=== PATIENT | female | born 1960 | race African-American/Black ===

== ENCOUNTER 2018-12-25 16:40 | Emergency (ER) | payer BC, SELFPAY ==
[2018-12-25 17:10] VITALS: BP 152/83; PULSE 110; RESP 19; TEMP 36.8; O2SAT 100; BMI 31.1
[2018-12-25 18:02] VITALS: BP 147/80; PULSE 105; RESP 19; O2SAT 98
--- NOTE | 2018-12-25 19:15 | ED_ITS ---
HPI - Headache General Chief Complaint: Headache Stated Complaint: STATES NEED EMERGENCY SPINAL TAP Time Seen by Provider: 12/25/18 16:54 Source: patient Mode of arrival: ambulatory History of Present Illness HPI Narrative: the patient is a 58-year-old female presenting with headaches drainage from her ear and nose bleeds. She has a known history of intracranial hypertension. She says for a long time and has been under control she lost weight and that seemed to control it for about the last 10 years. However the last 6 months she started having worsening headaches. She was hospitalized in [facility] and evaluated by neurologist. She was found to have complicated migraines and thought that intracranial hypertension was returning. She was told that she may need high volume spinal taps which have not yet been d one. Today she feels like her headache was a little worse and she had some drainage from her ears and had 2 nosebleeds today. She says all these signs are signs of her hypertension coming back. she does have some peripheral vision loss. Her blood pressure is slightly elevated with a systolic in the 150s now. She has no focal deficits. she has tried to schedule an outpatient high-volume spinal tap is at [facility] but difficulty getting his the order processed. She actually would prefer an outpatient high-volume spinal tap as opposed to one in the emergenency department. MD Complaint: headache Review of Systems Review of Systems ROS Unobtainable: All systems reviewed & are unremarkable except as noted in HPI and below Constitutional Denies chills, Denies fever(s), Reports headache(s), Denies lethargy and Denies weakness Eyes Reports change in vision (Bilateral peripheral vision decreasing) ENT Ears, Nose, Mouth, and Throat: Denies change in voice, Reports headache(s), Reports epistaxis (X2 today), Denies neck pain and Denies sore throat Cardiovascular Denies chest pain, Denies irregular heart rhythm, Denies lightheadedness, Denies palpitations and Denies orthopnea Gastrointestinal Gastrointestinal: Denies abdominal pain, Denies change in bowel habits, Denies diarrhea, Denies nausea and Denies vomiting Musculoskeletal Denies neck pain Integumentary/Breasts Denies pruritus, Denies erythema, Denies rash and Denies wounds Neurologic Reports headache(s) and Denies weakness Endocrine Denies palpitations PFSH Medical History Bilateral occipital neuralgia (Chronic) Cervicogenic headache (Chronic) Chronic neck pain (Chronic) Intracranial hypertension (Chronic) Intractable migraine with aura without status migrainosus (Chronic) Social History Smoking Status: Never smoker Social History Smoking Status: Never smoker Exam Initial Vital Signs Initial Vital Signs: Vital Signs Temperature 98.3 F 12/25/18 17:10 Pulse Rate 110 H 12/25/18 17:10 Respiratory Rate 19 12/25/18 17:10 Blood Pressure 152/83 H 12/25/18 17:10 Pulse Oximetry 100 12/25/18 17:10 GENERAL: Well-appearing, well-nourished and in no acute distress. HEENT: Head atraumatic,EOMI, pupils reactive, slight decrease in peripheral vision bilaterally. face symmetric, moist mucous membranes EARS: Tympanic membranes visualized, no erythema or bulging, no hemotympanum no drainage from ears bilaterally CARDIOVASCULAR: Regular rate and rhythm without murmurs, rubs or gallops. RESPIRATORY: Breath sounds equal bilaterally, no wheezes rales or rhonchi. ABDOMEN: Soft, nontender. Normoactive bowel sounds all 4 quadrants. No guarding or rebound.s EXTREMITIES: Normal range of motion, no clubbing or edema. Neurovascularly intact NEUROLOGICAL: Alert and oriented x4.Normal gait and speech. Cranial nerves II through XII grossly intact. Tacker Elastic Band strength equal bilaterally moving all extremi ties steady gait SKIN: Warm, dry, no laceration, no petechiae, no rashes or lesions. Course Vital Signs - 8 hr 12/25/18 17:10 12/25/18 18:02 12/25/18 19:46 Temperature 98.3 F Pulse Rate 110 H 105 H 124 H Respiratory Rate 19 19 18 Blood Pressure 152/83 H Blood Pressure [Left Arm] 147/80 H 160/105 H Pulse Oximetry 100 98 100 MDM - Headache MDM Narrative Medical decision making narrative: Discuss with patient blood work IV pain control all while I get in contact with Neurology. She said that she has a very hard stick she does not really want blood work. Additionally called Neurology Office in [place] at [place] [phone], implied they are part of the [facility] system. I called [facility] to try and get in touch with physician is or neurologist. I did speak with Dr. martha thornton, unfortunately they are unable to see the patient is records. Recommended that if patient was having significant vision loss or papilledema to do high-volume spinal tap, otherwise it was the appropriate for outpatient. Patient wanted to try and contact her neurologist and schedule this as an outpatient. She no longer lives in [place]. She was frustrated and wanted to go home. After patient left I did actually talk to her own neurologist Dr.Baburaj Best, out of [facility] in [place]. He said that he did not tell patient to come to emergently to the department for immediate high-volume spinal tap. I explained [place] it [place] for her to get into him. He states that he she has multiple headaches in intracranial problems. He recommended a headache specialist into high volume spinal tap at [facility]. He agrees that he will call and contact patient to help schedule and arrange treatment as needed. Discharge Plan Departure Patient Disposition: Home Clinical Impression: Benign intracranial hypertension Headache Qualifiers: Headache type: unspecified Headache chronicity pattern: unspecified pattern Intractability: not intractable Qualified Code(s): R51 - Headache Discharge Date/Time: 12/25/18 20:03 Interventions: ED Discharge Assessment Last Done: 12/25/18 20:00 Instructions: DI for Headache Activity Restrictions/Additional Instructions: * Intracranial hypertension * I have called the [facility] I am still waiting for a phone call back to help schedule you and outpatient high-volume spinal tap, per your neurologist request. * follow-up with neurology with your primary care doctor in 3-5 days * return to the ER if you should have any weakness persistent vomiting is vision change worsening headache or any new or worsening symptoms Referrals: gerber Best [Other]
[2018-12-25 19:46] VITALS: BP 160/105; PULSE 124; RESP 18; O2SAT 100
== END 2018-12-25 20:03 | disposition home or self-care (01) ==
PROVIDERS: Emergency Provider Emergency Medicine
DX: G93.2 Benign intracranial hypertension (principal)
CPT/HCPCS: 99282

== ENCOUNTER 2018-12-30 08:36 | Day surgery (SDC) | payer BC, SELFPAY ==
[2018-12-30] VITALS (9 sets, daily range): BP systolic 134–147; BP diastolic 60–94; PULSE 110–120; RESP 15–20; TEMP 36.2–36.8; O2SAT 98–100; BMI 30.4
[2018-12-30 09:33] LABS: Platelet Count 319 X10^3/uL (150-400)
[2018-12-30 10:06] LABS: INR 0.9 (0.9-1.3); Prothrombin Time 10.3 SECONDS (10.1-12.7)
[2018-12-30 10:09] LABS: PTT Partial Thromboplastin Tim 33 SECONDS (26.4-36.2)
[2018-12-30 11:51] LABS: Glucose CSF 104 mg/dL (40-70); Total Protein CSF 93 mg/dL (12-60)
[2018-12-30 12:15] LABS: Appearance CSF CLEAR (Clear); CSF Tube Number 3; CSF Tube Volume 1.0 mL; Color CSF COLORLESS (Colorless); White Blood Cell CSF 1 MONO/uL (0-5)
[2018-12-30 12:16] LABS: Mononuclear WBC CSF 100 %; Polynuclear WBC CSF 0 %; Red Blood Cell CSF 14 RBC /uL
--- NOTE | 2018-12-30 14:33 | SUR.PHASEII ---
1250 pt expressed desire to d/c. Bandaid CDI. VS stable. Pt denied headache, nausea or vomiting. Responding appropriately to commands and questions. IV d/c'd. D/C instructions reviewed.
== END 2018-12-30 13:06 | disposition home or self-care (01) ==
PROVIDERS: Radiology Diagnostic Radiology; Visit Provider Psychiatry & Neurology Neurology
PROC: 009U3ZZ Drainage of Spinal Canal, Percutaneous Approach (ICD-10-PCS; principal; 2018-12-30 10:00)
DX: G93.2 Benign intracranial hypertension (principal); G43.119 Migraine with aura, intractable, without status migrainosus
CPT/HCPCS: 62270; 76000; 82945; 84157; 85049; 85610; 85730; 87070; 87205; 89051

== ENCOUNTER → 2018-12-30 08:42 | Outpatient (CLI) | payer BC, SELFPAY ==
--- NOTE | 2018-12-30 | DI.RAD.S_ITS ---
PROCEDURE: FL GUIDED LUMBAR PUNCTURE LP INDICATIONS: Benign intracranial hypertension TECHNIQUE: The indications, alternatives, benefits, risks, and complications were explained to the patient. Written informed consent was obtained and placed in the chart. The patient was placed in a prone position on the fluoroscopy table, and a level was chosen for percutaneous access under fluoroscopic guidance. The site was prepped and draped in a sterile fashion. After local anaesthetic, a spinal needle was then used to enter the intrathecal space, with return of cerebrospinal fluid. After obtaining sufficient fluid, the needle was then withdrawn, and a bandage applied to the puncture site. FINDINGS: Puncture level: L3 right paramedian interlaminar logic, dorsal approach. Needle: Spinal needle. Opening pressure: 14 cm water from the tip of needle to the meniscus, opening pressure. At termination of procedure the meniscus had reduced to 9 cm water heights from the needle tip, in prone positioning.. CSF volume and description: 4 small aliquots were obtained, crystal clear, for analysis at the direction of the aortic valve care provider. Medications: 1% lidocaine for anaesthesia. Complications: None. Laboratories: As ordered by referring clinician. IMPRESSION: Successful fluoroscopically guided lumbar puncture 14 cm opening pressure, 9 cm closing pressure, normal-appearing CSF observed, small aliquots were provided in 4 separate containers for laboratory analysis. Dictated by: Amilcar Gibson M.D. on 12/30/2018 at 13:09 Approved by: Amilcar Gibson M.D. on 12/30/2018 at 13:11
== END ==
PROVIDERS: Visit Provider Psychiatry & Neurology Neurology
DX: G93.2 Benign intracranial hypertension (principal)
CPT/HCPCS: 62270; 76000

== ENCOUNTER 2019-01-28 07:29 | Outpatient (RCR) | payer BC, SELFPAY ==
--- NOTE | 2019-01-28 11:15 | PT.OPPOC ---
Current Diagnoses Cervicalgia (01/28/19) Occipital neuralgia (01/28/19) Headache (01/28/19) Provider Visit Care Team Role Provider Type Angella Marie Primary Care Provider Non-Staff Specialty: Medical Address: [address] [place] [address], [address], [address] Fax: Email: Vandana Best MD Attending Provider Non-Staff Specialty: Psychiatry Address: [address] [place] [address], [address], [place], [address] Email: Plan Of Care PT-OP-T Assessment and Plan Start: 01/28/19 10:15 Freq: Status: Active Protocol: Document 01/28/19 11:00 EA (Rec: 02/03/19 08:54 EA [id number]) Physical Therapy Assessment Rehab Potential Rehabilitation Potential Fair Evaluation Complexity Number of Personal Factors/Comorbidities 3 or More Number of Body Systems Impaired 3 Clinical Presentation at Evaluation Unstable Impairments Impairments Activity Tolerance Pain Posture ROM Soft Tissue Mobility Strength Other Concerns Barriers to Rehabilitation Chronicity of the condition, tolerance to manual and exercises tolerance Goals Three Impairment Impaired sleep Shear Operator Helper Goal (LTG) Patient will sleep > 6 hrs without disturbance from neck pain. LTG Duration 4 wks Two Impairment Neck disability index score of 36/50 Alf Goal (LTG) Patient will have score of <30 LTG Duration 4 wks One Impairment No HEP in place Shear Operator Helper Goal (LTG) Patient will exhibit safe indepedent home exercise program LTG Duration 4 wks Assessment Summary Assessment Pleasant 58 y/o F patient with referring diagnosis of Chronic neck pain, Cervicogenic pain, and bilateral occipital Neuralgia. Today patient presented of with limited neck mobility due to increasing pain. Assessment is limited only to shoulder and arms due to increasing pain and hypersensitivity to manual touch from head to base of the cervical region. Posture reveals forward head with rounded shoulders with slight elevation of right shoulder in posterior view. Special tests was not possible at this time due to inability to tolerate position and manual contact. Functional Appley's reveals both able to reached up and back to C7 and down and back to L2. Due to increasing pain and decreased tolerance to special tests, patient agreeable to undergo pain management prior to starting skilled PT in which appears she is scheduled for this week to pain management assessment . In my professional opinion, patient would benefit only to skilled PT once she is able to manage manual contact and increased tolerance to neck mobility with goals of increasing neck mobility and improving posture. Physical Therapy Plan Frequency and Duration Frequency of Treatment 2x/Week Duration of Treatment 8 Plan of Care Start Date 01/28/19 Plan of Care End Date 03/25/19 Therapeutic Interventions Therapeutic Interventions Home Exercise Program Joint Mobilizations Manual Therapy Patient/Caregiver Education Self-Care/Home Management Soft Tissue Mobilization Taping Therapeutic Exercises Modalities Cold Pack/Ice Massage Electric Stimulation Hot Packs Traction- Mechanical Hold Physical Therapy Reason For Hold To initiate pain management treatment due to decreased tolerance to manual touch and mobility. Next Visit Focus/Plan Next Note Type Treatment Note Next Visit Plan re-assess pain and complete strength and special tests. Plan of Care Dates Plan of Care Start Date 01/28/19 Plan of Care End Date 03/25/19 Please Sign and Return: I have reviewed this Plan of Care and certify that the skilled therapy services above are required to meet the patient?s needs. Physician Signature Date Printed Name and Credentials Clinical Instructor Signature Printed Name and Credentials
--- NOTE | 2019-01-28 11:15 | PT.OIE ---
Current Diagnoses Cervicalgia (01/28/19) Occipital neuralgia (01/28/19) Headache (01/28/19) Past Medical History (Last Updated 12/25/18 @ 22:19 by Sunita Oropeza DO) Bilateral occipital neuralgia (Chronic) Cervicogenic headache (Chronic) Chronic neck pain (Chronic) Intracranial hypertension (Chronic) Intractable migraine with aura without status migrainosus (Chronic) Provider Visit Care Team Role Provider Type Angellamilagros Marie Primary Care Provider Non-Staff Specialty: Medical Address: [address] [place] [address], [facility] [address], [address] Fax: Email: Vandana Best MD Attending Provider Non-Staff Specialty: Psychiatry Address: [address] [place] [address], [facility] [address], [place], [address] Email: Physical Therapy Initial Evaluation PT-OP-A Visit Information Start: 01/28/19 10:15 Freq: Status: Active Protocol: Document 01/28/19 11:08 EA (Rec: 01/28/19 11:15 EA [id number]) Out-Patient Physical Therapy Visit Information Visit Information Visit Type Initial Evaluation Visit Start Time 07:35 Visit Stop Time 08:00 Total Visit Minutes 40 Visit Number 1 Number of BARREL POLISHER Visits 0 Evaluation Information Evaluation Date 01/28/19 Precautions Precautions Seizures PT-OP-B Current Condition Start: 01/28/19 10:15 Freq: Status: Active Protocol: Document 01/28/19 11:08 EA (Rec: 01/28/19 11:15 EA [id number]) Current Condition History of Current Condition Onset Date 2007 Current Complaints Post neck, scalp, and shoulder pain History of Current Condition Patient narrated: Three diagnosis of current scalp, cervical and shoulder pain. 1. Hemiplegic migraine: Pt report had multiple hospitalization recently, states symptoms of left side face dropping with pain. She prefers not to be treated with PT as she believes it won't help by physical therapy for this condition. 2. Occipital neuralgia: Pt reports had formal PT in 2007, and 2010 which was not completely resolved. She mentioned that hemiplegic pain most of the time aggravates the occipital neuralgia. 3. Intracranial HTN: She reports pending surgery for an increasing spinal fluid pressure. Prior Treatments and Tests 2007 and 2010 Formal PT for occipital neuralgia Lumbar Tap 12/2018 Multiple recent hospitalization Future Testing and Treatments Planned Pending cranial surgery per patient Scheduled for pain management 02/13/19 Treatment Goals Patient/Caregiver Goals Patient would like to improve neck mobility and decrease pain. Prior Functional Status Baseline Function- ADL's Independent Baseline Function- Mobility Independent Baseline Function- Gait Independent with no AD Baseline Function- Work/School Used to work under [employer] service per patient. Current Functional Impairments (Reported) Functional Limitations- ADL's Independent but unable to perform ADL's during the flareups. Functional Limitations- Mobility/Gait Independent but unable to mobilize or perform functional tasks when neck pain and headache aggravated Functional Limitations- Work/School Unable to work at this time Functional Limitations- Recreation/ Unable/ extreme difficulty Hobbies Personal Factors Other Personal Factors That May Effect Chronicity of the condition, Therapy/Recovery fibromyalgia PT-OP-C Subjective Start: 01/28/19 10:15 Freq: Status: Active Protocol: Document 01/28/19 11:00 EA (Rec: 02/03/19 08:54 EA [id number]) OP-PT Subjective Patient Comments Patient Comments Patient reports light touch application to the side, posterior neck region, occiput , temporal region excacerbates current pain and head ache symptoms. Patient Reported Progress Worse Patient Questionnaires Neck Disability Index NDI Score 36 Neck Disability Index Impairment 60 to 79% Impaired (Score 30- 39) OP-PT Pain Assessment Pain Assessment Grid Paper Pain Assessment Grid Completed Yes Location Left Posterior Lateral Neck Pain Location Details Poterior and lateral neck, occiput region Intensity 7 Description Aching Radiating Sharp Shooting Tender Tightness Frequency Frequent Pain Aggravating Factors Activity Home Pain Medication Use Pain Medications Used Yes Pain Behaviors Pain Behaviors Guarding Wincing PT-OP-E Functional Tests Start: 01/28/19 10:15 Freq: Status: Active Protocol: Document 01/28/19 11:00 EA (Rec: 02/03/19 08:54 EA [id number]) Functional Tests Sanjanaey's Scratch Test Action 1: The subject is instructed to touch the opposite shoulder with his/her hand. This motion checks Glenohumeral adduction, internal rotation , horizontal adduction and scapular protraction Action 2: The subject is instructed to place his/her arm overhead and reach behind the neck to touch his/her upper back. This motion checks Glenohumeral abduction, external rotation and scapular upward rotation and elevation. Action 3: The subject puts his/her hand on the lower back and reaches upward as far as possible. This motion checks glenohumeral adduction, internal rotation and scapular retraction with downward rotation Action 1- Left post opp shoulder Action 1- Right post opp shoulder Action 2- Left C7 Action 2- Right C7 Action 3- Left L2 Action 3- Right L2 PT-OP-H Neuro Start: 01/28/19 10:15 Freq: Status: Active Protocol: Document 01/28/19 11:00 EA (Rec: 02/03/19 08:57 EA [id number]) Sensation Evaluation Gross Sensation Gross Sensation WNL PT-OP-J Posture/Palpation/Skin Start: 01/28/19 10:15 Freq: Status: Active Protocol: Document 01/28/19 11:00 EA (Rec: 02/03/19 08:54 EA [id number]) Posture Evaluation Position Sitting Evaluation View post/lat Head/C-Spine Posture Forward Head T-Spine Posture Increased Kyphosis Scapula Posture (L) Protracted (R) Protracted Arm Posture (L) Internally Rotated (R) Internally Rotated Palpation Assessment Location One Palpation Details N/A applicable due to hypersensitivity to touch PT-OP-K Range of Motion Start: 01/28/19 10:15 Freq: Status: Active Protocol: Document 01/28/19 11:00 EA (Rec: 02/03/19 08:55 EA [id number]) Cervical Spine Range of Motion Cervical Spine Active Percentage Testing Position Sitting Flexion 30 Extension 15 Rotation Left 30 Rotation Right 30 Lateral Flexion Left 50 Lateral Flexion Right 50 ROM Limitations Soft Tissue Tightness Pain Shoulder Goniometric Range of Motion Shoulder ROM Limitations Shoulder ROM Limitations Pain Comments Patient Appley's: Overhead both C7 and behind the back were both L2 Elbow/Forearm Range of Motion Elbow/Forearm ROM Limitations Comments WFL PT-OP-L Special Tests Start: 01/28/19 10:15 Freq: Status: Active Protocol: Document 01/28/19 11:00 EA (Rec: 02/03/19 08:54 EA [id number]) Special Tests Other Special Tests Special Tests Cervical special tests is N/A at this time due to inability tolerate certain positions and manual contact. PT-OP-M Strength Start: 01/28/19 10:15 Freq: Status: Active Protocol: Document 01/28/19 11:00 EA (Rec: 02/03/19 08:54 EA [id number]) Cervical Spine Strength Cervical Spine Manual Muscle Testing Testing Position Sitting Reason Not Measured Pain Shoulder Strength Shoulder Manual Muscle Testing Right Reason Not Measured Pain Comments Unable to perform MMT due to hypersensitivity, however spontaneous movement noted to at least 3/5 on both UE's. Left Reason Not Measured Pain Comments Unable to perform MMT due to hypersensitivity, however spontaneous movement noted to at least 3/5 on both UE's. Elbow/Forearm Strength Elbow and Forearm Manual Muscle Testing Right Reason Not Measured Pain Comments Unable to perform MMT due to hypersensitivity, however spontaneous movement noted to at least 3/5 on both UE's. Left Reason Not Measured Pain Comments Unable to perform MMT due to hypersensitivity, however spontaneous movement noted to at least 3/5 on both UE's. PT-OP-T Assessment and Plan Start: 01/28/19 10:15 Freq: Status: Active Protocol: Document 01/28/19 11:00 EA (Rec: 02/03/19 08:54 EA [id number]) Physical Therapy Assessment Rehab Potential Rehabilitation Potential Fair Evaluation Complexity Number of Personal Factors/Comorbidities 3 or More Number of Body Systems Impaired 3 Clinical Presentation at Evaluation Unstable Impairments Impairments Activity Tolerance Pain Posture ROM Soft Tissue Mobility Strength Other Concerns Barriers to Rehabilitation Chronicity of the condition, tolerance to manual and exercises tolerance Goals Three Impairment Impaired sleep Fdc Goal (LTG) Patient will sleep > 6 hrs without disturbance from neck pain. LTG Duration 4 wks Two Impairment Neck disability index score of 36/50 Fdc Goal (LTG) Patient will have score of <30 LTG Duration 4 wks One Impairment No HEP in place Administrative Support Associate Goal (LTG) Patient will exhibit safe indepedent home exercise program LTG Duration 4 wks Assessment Summary Assessment Pleasant 58 y/o F patient with referring diagnosis of Chronic neck pain, Cervicogenic pain, and bilateral occipital Neuralgia. Today patient presented of with limited neck mobility due to increasing pain. Assessment is limited only to shoulder and arms due to increasing pain and hypersensitivity to manual touch from head to base of the cervical region. Posture reveals forward head with rounded shoulders with slight elevation of right shoulder in posterior view. Special tests was not possible at this time due to inability to tolerate position and manual contact. Functional Appley's reveals both able to reached up and back to C7 and down and back to L2. Due to increasing pain and decreased tolerance to special tests, patient agreeable to undergo pain management prior to starting skilled PT in which appears she is scheduled for this week to pain management assessment . In my professional opinion, patient would benefit only to skilled PT once she is able to manage manual contact and increased tolerance to neck mobility with goals of increasing neck mobility and improving posture. Physical Therapy Plan Frequency and Duration Frequency of Treatment 2x/Week Duration of Treatment 8 Plan of Care Start Date 01/28/19 Plan of Care End Date 03/25/19 Therapeutic Interventions Therapeutic Interventions Home Exercise Program Joint Mobilizations Manual Therapy Patient/Caregiver Education Self-Care/Home Management Soft Tissue Mobilization Taping Therapeutic Exercises Modalities Cold Pack/Ice Massage Electric Stimulation Hot Packs Traction- Mechanical Hold Physical Therapy Reason For Hold To initiate pain management treatment due to decreased tolerance to manual touch and mobility. Next Visit Focus/Plan Next Note Type Treatment Note Next Visit Plan re-assess pain and complete strength and special tests.
--- NOTE | 2019-05-20 16:59 | PT.OPDS ---
Current Diagnoses Cervicalgia (01/28/19) Occipital neuralgia (01/28/19) Headache (01/28/19) Provider Visit Care Team Role Provider Type Angella Marie Primary Care Provider Non-Staff Specialty: Medical Address: [address] [place] [address], [address], [address] Fax: Email: Vandana Best MD Attending Provider Non-Staff Specialty: Psychiatry Address: [address] [place] [address], [address], [place], [address] Email: Visit Number Visit Number 1 Discharge Summary PT-OP-B Current Condition Start: 01/28/19 10:15 Freq: Status: Active Protocol: Document 01/28/19 11:08 MANUELA (Rec: 01/28/19 11:15 EA [id number]) Current Condition History of Current Condition Onset Date 2007 Current Complaints Post neck, scalp, and shoulder pain History of Current Condition Patient narrated: Three diagnosis of current scalp, cervical and shoulder pain. 1. Hemiplegic migraine: Pt report had multiple hospitalization recently, states symptoms of left side face dropping with pain. She prefers not to be treated with PT as she believes it won't help by physical therapy for this condition. 2. Occipital neuralgia: Pt reports had formal PT in 2007, and 2010 which was not completely resolved. She mentioned that hemiplegic pain most of the time aggravates the occipital neuralgia. 3. Intracranial HTN: She reports pending surgery for an increasing spinal fluid pressure. Prior Treatments and Tests 2007 and 2010 Formal PT for occipital neuralgia Lumbar Tap 12/2018 Multiple recent hospitalization Future Testing and Treatments Planned Pending cranial surgery per patient Scheduled for pain management 02/13/19 Treatment Goals Patient/Caregiver Goals Patient would like to improve neck mobility and decrease pain. 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 Current Functional Impairments (Reported) Functional Limitations- ADL's Independent but unable to perform ADL's during the flareups. Functional Limitations- Mobility/Gait Independent but unable to mobilize or perform functional tasks when neck pain and headache aggravated Functional Limitations- Work/School Unable to work at this time Functional Limitations- Recreation/ Unable/ extreme difficulty Hobbies Personal Factors Other Personal Factors That May Effect Chronicity of the condition, Therapy/Recovery fibromyalgia PT-OP-C Subjective Start: 01/28/19 10:15 Freq: Status: Active Protocol: Document 05/20/19 16:57 EA (Rec: 05/20/19 16:58 EA [id number]) OP-PT Subjective Patient Comments Patient Comments Pt is discharge due to not attending PT. PT-OP-E Functional Tests Start: 01/28/19 10:15 Freq: Status: Active Protocol: Document 01/28/19 11:00 EA (Rec: 02/03/19 08:54 EA [id number]) Functional Tests Apley's Scratch Test Action 1- Left post opp shoulder Action 1- Right post opp shoulder Action 2- Left C7 Action 2- Right C7 Action 3- Left L2 Action 3- Right L2 PT-OP-H Neuro Start: 01/28/19 10:15 Freq: Status: Active Protocol: Document 01/28/19 11:00 EA (Rec: 02/03/19 08:57 EA [id number]) Sensation Evaluation Gross Sensation Gross Sensation WNL PT-OP-J Posture/Palpation/Skin Start: 01/28/19 10:15 Freq: Status: Active Protocol: Document 01/28/19 11:00 EA (Rec: 02/03/19 08:54 EA [id number]) Posture Evaluation Position Sitting Evaluation View post/lat Head/C-Spine Posture Forward Head T-Spine Posture Increased Kyphosis Scapula Posture (L) Protracted (R) Protracted Arm Posture (L) Internally Rotated (R) Internally Rotated Palpation Assessment Location One Palpation Details N/A applicable due to hypersensitivity to touch PT-OP-K Range of Motion Start: 01/28/19 10:15 Freq: Status: Active Protocol: Document 01/28/19 11:00 EA (Rec: 02/03/19 08:55 EA [id number]) Cervical Spine Range of Motion Cervical Spine Active Percentage Testing Position Sitting Flexion 30 Extension 15 Rotation Left 30 Rotation Right 30 Lateral Flexion Left 50 Lateral Flexion Right 50 ROM Limitations Soft Tissue Tightness Pain Shoulder Goniometric Range of Motion Shoulder ROM Limitations Shoulder ROM Limitations Pain Comments Patient Appley's: Overhead both C7 and behind the back were both L2 Elbow/Forearm Range of Motion Elbow/Forearm ROM Limitations Comments WFL PT-OP-L Special Tests Start: 01/28/19 10:15 Freq: Status: Active Protocol: Document 01/28/19 11:00 EA (Rec: 02/03/19 08:54 EA [id number]) Special Tests Other Special Tests Special Tests Cervical special tests is N/A at this time due to inability tolerate certain positions and manual contact. PT-OP-M Strength Start: 01/28/19 10:15 Freq: Status: Active Protocol: Document 01/28/19 11:00 EA (Rec: 02/03/19 08:54 EA [id number]) Cervical Spine Strength Cervical Spine Manual Muscle Testing Testing Position Sitting Reason Not Measured Pain Shoulder Strength Shoulder Manual Muscle Testing Right Reason Not Measured Pain Comments Unable to perform MMT due to hypersensitivity, however spontaneous movement noted to at least 3/5 on both UE's. Left Reason Not Measured Pain Comments Unable to perform MMT due to hypersensitivity, however spontaneous movement noted to at least 3/5 on both UE's. Elbow/Forearm Strength Elbow and Forearm Manual Muscle Testing Right Reason Not Measured Pain Comments Unable to perform MMT due to hypersensitivity, however spontaneous movement noted to at least 3/5 on both UE's. Left Reason Not Measured Pain Comments Unable to perform MMT due to hypersensitivity, however spontaneous movement noted to at least 3/5 on both UE's. PT-OP-T Assessment and Plan Start: 01/28/19 10:15 Freq: Status: Active Protocol: Document 05/20/19 16:57 EA (Rec: 05/20/19 16:58 EA [id number]) Physical Therapy Assessment Assessment Summary Assessment Pt is discharge due to not attending PT and did not schedule PT appointment after agreeing to call back once she is seen by the pain management. Physical Therapy Plan Discharge Physical Therapy Discharge Reasons No Longer Attending PT
== END 2019-01-28 13:59 | disposition home or self-care (01) ==
LOC: PHYS 07:29
PROVIDERS: PCP Family Medicine; Visit Provider Psychiatry & Neurology Neurology
DX: M54.2 Cervicalgia (principal); R51 Headache; M54.81 Occipital neuralgia
CPT/HCPCS: 97163

== ENCOUNTER → 2019-02-13 11:26 | Outpatient (CLI) | payer BC, SELFPAY ==
--- NOTE | 2019-02-13 11:29 | DI.RAD.S_ITS ---
PROCEDURE: XR CERVICAL SPINE 2V OR 3V INDICATIONS: NECK PAIN TECHNIQUE: 3 view(s) of the cervical spine were acquired. COMPARISON: None. FINDINGS: Bones: Straightening of cervical curvature. No fractures or dislocations to the C7 level. The lateral masses of C1 appear intact on the odontoid view. No suspicious bony lesions. There is mild degenerative disc disease at C5-C6 and C6-C7. Soft tissues: No prevertebral soft tissue swelling. IMPRESSION: Mild degenerative disc disease. Dictated by: Aaliyah Murrell M.D. on 02/13/2019 at 14:19 Approved by: Aaliyah Murrell M.D. on 02/13/2019 at 14:20
--- NOTE | 2019-02-13 11:29 | DI.RAD.S_ITS ---
PROCEDURE: XR THORACIC SPINE 2V INDICATIONS: neck pain TECHNIQUE: 3 views of the thoracic spine were acquired. COMPARISON: None. FINDINGS: Bones: No fractures or dislocations. No suspicious bony lesions. Mild degenerative disc disease is present in thoracic spine. There are multiple large right lateral osteophytes. 12 pairs of ribs are noted, and appear intact where visualized. Soft tissues: No paravertebral stripe thickening. IMPRESSION: Degenerative disc disease and degenerative spurring in thoracic spine. Dictated by: Aaliyah Murrell M.D. on 02/13/2019 at 17:22 Approved by: Aaliyah Murrell M.D. on 02/13/2019 at 17:31
== END ==
PROVIDERS: Visit Provider Family Medicine
DX: M50.322 Other cervical disc degeneration at C5-C6 level (principal); M51.34 Other intervertebral disc degeneration, thoracic region; M25.78 Osteophyte, vertebrae; M54.81 Occipital neuralgia; G50.0 Trigeminal neuralgia; G43.409 Hemiplegic migraine, not intractable, without status migrainosus; G93.2 Benign intracranial hypertension
CPT/HCPCS: 64405; 72040; 72070

== ENCOUNTER → 2019-04-17 07:30 | Outpatient (CLI) | payer BC, SELFPAY ==
--- NOTE | 2019-04-17 07:31 | DI.MRI.S_ITS ---
PROCEDURE: MR CERVICAL SPINE WO CON INDICATIONS: neck pain TECHNIQUE: Noncontrast sagittal T1 spin echo and T2 fast spin echo, sagittal STIR, foraminal oblique sagittal T2 fast spin echo, and axial gradient echo or T2 fast spin echo through the cervical spine. COMPARISON: [facility], CR, XR CERVICAL SPINE 2V OR 3V, 02/13/2019, 11:34. FINDINGS: Image quality: Excellent. Alignment and Curvature: There is normal bony alignment. Bone Marrow: Marrow demonstrates normal overall signal. Spinal Cord: Visualized spinal cord has normal size and signal. No cerebellar tonsillar herniation. Paraspinous Soft Tissues: No paravertebral masses. Prevertebral soft tissues are normal in thickness. C2-C3: Congenital canal stenosis. Moderate disc desiccation. Mild diffuse disc bulge. Small central annular tear. Mild facet hypertrophy bilaterally. Mild canal stenosis. Mild bilateral foraminal stenosis. C3-C4: Congenital canal stenosis. Moderate disc desiccation. Mild diffuse disc bulge. Mild facet and uncovertebral hypertrophy bilaterally. Moderate to severe canal stenosis. Minimal anterior cord flattening. Moderate right and mild left foraminal stenosis. C4-C5: Congenital canal stenosis. Moderate disc desiccation. Mild diffuse disc bulge. Mild facet and uncovertebral hypertrophy bilaterally. Moderate canal stenosis. Mild left and moderate right foraminal stenosis. C5-C6: Congenital canal stenosis. Moderate disc desiccation. Mild diffuse disc bulge. Mild facet and uncovertebral hypertrophy bilaterally. Moderate to severe canal stenosis. No left foraminal stenosis. Moderate right foraminal stenosis. C6-C7: Congenital canal stenosis. Mild disc height loss. Moderate disc desiccation. Mild diffuse disc bulge with superimposed right paracentral and posterolateral protrusion. Mild facet and uncovertebral hypertrophy bilaterally. Moderate to severe canal stenosis. Mild cord flattening. Mild foraminal stenosis bilaterally. C7-T1: Mild disc desiccation and diffuse disc bulge. Congenital canal stenosis. Mild bilateral facet hypertrophy. Mild canal stenosis. Mild foraminal stenosis bilaterally. IMPRESSION: 1. Diffuse congenital canal stenosis, with superimposed disc and facet disease, as well as uncovertebral hypertrophy. 2. Multilevel canal stenoses, worst at C3-C4 and C6-C7, where there is cord flattening present. 3. Multilevel foraminal stenoses, worst at C3-C4 on the right, at C4-C5 on the right, and at C5-C6 on the right, where there are moderate foraminal stenoses. Dictated by: Junior Claire M.D. on 04/17/2019 at 11:04 Approved by: Junior Claire M.D. on 04/17/2019 at 11:09
== END ==
PROVIDERS: PCP Family Medicine; Visit Provider Physical Medicine & Rehabilitation
DX: M48.02 Spinal stenosis, cervical region (principal); M50.21 Other cervical disc displacement, high cervical region
CPT/HCPCS: 72141

== ENCOUNTER 2019-05-09 04:27 | Emergency (ER) | payer BC, SELFPAY ==
[2019-05-09 04:35] VITALS: BMI 29.0
--- NOTE | 2019-05-09 04:41 | ED_ITS ---
HPI - Allergic Reaction General Chief complaint: Allergic Reaction Stated complaint: Itchy, Burning Rash, Headache, Swelling Time Seen by Provider: 05/09/19 04:38 Source: patient Mode of arrival: ambulatory Limitations: no limitations History of Present Illness HPI narrative: The patient has a non itchy rash this been going on for about 1 week. She has no history of asthma or allergies. She has no obvious exposure. Her other prominent symptom is a sore throat. She has no difficulty swallowing. She denies fever or chills. She is diabetic, her diabetes is well controlled. Her glucose is running 100-120. There is no associated rhinorrhea, no cough. She has no GI or symptoms. She complains of itchiness in her upper extremities or lower extremities. She complains of edema, edema is coming going previously. She has been compliant with medications. She has been using Benadryl for the itching with little result. Related Data Home Medications Medication Instructions Recorded Confirmed glimepiride 2 mg PO BID 12/30/18 04/18/19 metformin 1,000 mg PO QPM 12/30/18 04/18/19 metformin 500 mg PO QAM 12/30/18 04/18/19 nifedipine 60 mg PO DAILY 12/30/18 04/18/19 topiramate 50 mg PO BID 12/30/18 04/18/19 Previous Rx's Medication Instructions Recorded carbamazepine ER 100 mg 100 mg PO DAILY #60 tab 02/13/19 tablet,extended release,12 hr baclofen 10 mg tablet 5 mg PO BID #30 tab 02/17/19 baclofen 10 mg tablet 10 mg PO TID #90 tab 03/03/19 carbamazepine ER 100 mg 100 mg PO BID #120 tab 03/03/19 tablet,extended release,12 hr celecoxib 200 mg capsule 200 mg PO DAILY #30 cap 04/09/19 oxycodone 5 mg capsule 5 mg PO Q6H PRN #20 cap 04/18/19 Allergies Allergy/AdvReac Type Severity Reaction Status Date / Time NEEL Inhibitors Allergy Severe swelling Verified 04/18/19 08:14 and sob Review of Systems Review of Systems ROS Unobtainable: All systems reviewed & are unremarkable except as noted in HPI and below Constitutional Denies chills, Denies fever(s), Denies lethargy and Denies weakness Eyes Denies eye discharge and Denies itchy eyes ENT Ears, Nose, Mouth, and Throat: Denies change in voice, Denies neck pain and Reports sore throat Cardiovascular Denies chest pain, Denies lightheadedness, Denies palpitations, Denies dyspnea and Denies orthopnea Respiratory Denies cough, Denies dyspnea and Denies wheezing Gastrointestinal Gastrointestinal: Denies abdominal pain, Denies diarrhea, Denies nausea and Denies vomiting Genitourinary Denies hematuria, Denies flank pain and Denies urinary urgency Musculoskeletal Denies back pain and Denies neck pain Integumentary/Breasts Reports as per HPI, Reports pruritus and Denies rash Neurologic Denies weakness Psychiatric Denies anxiety and Denies suicidal ideation Endocrine Denies palpitations Allergic/Immunologic Denies itchy eyes and Denies wheezing [facility] Medical History (Updated 05/09/19 @ 05:30 by Chencho Montoya MD) Diabetes (Acute) Bilateral occipital neuralgia (Chronic) Cervicogenic headache (Chronic) Chronic neck pain (Chronic) Intracranial hypertension (Chronic) Intractable migraine with aura without status migrainosus (Chronic) Social History household members: spouse Smoking Status: Never smoker Social History household members: spouse Smoking Status: Never smoker Exam Const General: cooperative and well developed Nutritional Appearance: well nourished Orientation: alert, awake, oriented x3 and not confused [facility] Head: normocephalic and atraumatic Nose: external nose normal and No nasal discharge Face and sinus: sinuses nontender and face symmetric Mouth: moist mucous membranes Teeth and gingiva: dentition normal Throat: tonsils normal, uvula midline and posterior oropharynx abnormal (Slight erythema. No exudate.) Eyes General: appearance normal, both eyes and all related structures Eyelids: eyelids normal Conjunctivae: conjunctivae normal Sclera: sclerae normal Pupils: PERRL EOM: EOM intact bilaterally Neck Neck: No lymphadenopathy and No tender Resp Effort & Inspection: normal respiratory effort, able to speak in complete sentences, no respiratory distress and no use of accessory muscles Auscultation: clear to auscultation bilaterally, no rales, no rhonchi and no wheezes Cardio Rate: regular rate Rhythm: regular rhythm Heart Sounds: no click, no gallops, no murmurs and no rubs Pulses: normal peripheral pulses GI Inspection: non-distended Palpation: soft, no hepatosplenomegaly, No guarding and No tender Auscultation: normal bowel sounds Back/Spine/Pelvis Back: No CVA tenderness Skin Other: Papillary rash with erythema, sporadically present on both wrists, hands, upper back, and lower extremities. No pustules. Itchy. Neuro General: alert, oriented x3, gait normal and no focal motor deficits Speech: speech normal Course Course Narrative: Patient is content with understand she has a virus. She is a daughter at her house, she wanted to rule out measles. She was reasonably sure that there was no evidence of measles, from our own Internet research. She declined further evaluation. She has a scheduled follow-up with her own doctor in the next few days. Discharge Plan Departure Patient Disposition: Home Clinical Impression: Viral illness Discharge Date/Time: 05/09/19 05:33 Instructions: DI for Viral Syndrome Activity Restrictions/Additional Instructions: Benadryl every 4-6 hours as needed for itching. Shower requently. I would suggest applying moisturizers to help soothe the skin and try to prevent scratching. Return to the ER if you develop persistent fevers. Follow up with your doctor as scheduled. Prescriptions: No Action baclofen 10 mg tablet 5 mg PO BID Qty: 30 RF: 1 metformin 500 mg tablet 500 mg PO QAM RF: 0 glimepiride 2 mg tablet 2 mg PO BID RF: 0 nifedipine 60 mg tablet extended release 24hr 60 mg PO DAILY RF: 0 metformin 1,000 mg tablet 1,000 mg PO QPM RF: 0 topiramate 50 mg tablet 50 mg PO BID RF: 0 celecoxib [Celebrex] 200 mg capsule 200 mg PO DAILY Qty: 30 RF: 2 carbamazepine [Tegretol XR] 100 mg tablet extended release 12 hr 100 mg PO DAILY Qty: 60 RF: 3 baclofen 10 mg tablet 10 mg PO TID Qty: 90 RF: 2 carbamazepine [Tegretol XR] 100 mg tablet extended release 12 hr 100 mg PO BID Qty: 120 RF: 2 oxycodone 5 mg capsule 5 mg PO Q6H PRN (Reason: pain) Qty: 20 RF: 0 Referrals: Angella Marie [Primary Care Provider] -
[2019-05-09 05:30] VITALS: BP 140/90; PULSE 98; RESP 18; O2SAT 98
== END 2019-05-09 05:33 | disposition home or self-care (01) ==
PROVIDERS: Emergency Provider Emergency Medicine; PCP Family Medicine
DX: B34.9 Viral infection, unspecified (principal)
CPT/HCPCS: 99282

== ENCOUNTER → 2019-05-19 11:41 | Outpatient (CLI) | payer BC, SELFPAY ==
[2019-05-19 12:40] LABS: Hemoglobin A1C% w Est Avg Glu 8.4 % (4.0-6.0)
[2019-05-19 14:35] LABS: Microalbumin Urine Random 6.5 mg/dL (0-1.6)
[2019-05-19 14:46] LABS: Microalbumi Creatinin Ratio Ur 18.7 ug/mg CR (<30)
[2019-05-19 16:09] LABS: Hep C Virus Ab w/Reflex Quant NEGATIVE s/c (NEGATIVE)
== END ==
PROVIDERS: PCP Family Medicine; Visit Provider Family Medicine
DX: E11.65 Type 2 diabetes mellitus with hyperglycemia (principal); Z11.59 Encounter for screening for other viral diseases
CPT/HCPCS: 36415; 82043; 82570; 83036; 86803

== ENCOUNTER 2019-05-23 07:30 | Outpatient (RCR) | payer BC, SELFPAY ==
--- NOTE | 2019-05-21 17:22 | PT.OIE ---
Current Diagnoses Spondylosis without myelopathy or radiculopathy, cervical region (05/21/19) Past Medical History (Last Updated 05/09/19 @ 05:30 by Chencho Montoya MD) Diabetes (Acute) Bilateral occipital neuralgia (Chronic) Cervicogenic headache (Chronic) Chronic neck pain (Chronic) Intracranial hypertension (Chronic) Intractable migraine with aura without status migrainosus (Chronic) Provider Visit Care Team Role Provider Type Angella Marie Primary Care Provider Non-Staff Specialty: Medical Address: [address] [place] [address], [address] [place] [address], [phone] Fax: Email: Chencho Smith DO Attending Provider Physician Specialty: Physiatry Pain Management Address: [address] [place] [address], [id number] Email: Physical Therapy Initial Evaluation PT-OP-A Visit Information Start: 05/21/19 09:46 Freq: Status: Active Protocol: Document 05/21/19 09:55 EA (Rec: 05/21/19 10:33 EA [id number]) Out-Patient Physical Therapy Visit Information Visit Information Visit Type Initial Evaluation Visit Start Time 07:30 Visit Stop Time 08:15 Total Visit Minutes 40 Visit Number 1 Evaluation Information Evaluation Date 05/21/19 Precautions Precautions Hypersensitive to touch PT-OP-B Current Condition Start: 05/21/19 09:46 Freq: Status: Active Protocol: Document 05/21/19 09:55 EA (Rec: 05/21/19 10:33 EA [id number]) Current Condition History of Current Condition Onset Date 15 years ago Current Complaints occipital and left lateral neck and shoulder pain. History of Current Condition Patient reports that she was not able to scheduled PT since last PT evaluation due to pain treament that she had at pain clinic; she reports that MRI recently reveals that she has a lot of neck osteoarthritis. Aside from having arthritis to cervical region, she believes pain last night is maybe due to occipital trigeminal neuralgia . She reports medication helps and hot compress helps a bit. Prior Treatments and Tests Multiple cervical and head diagnostic imaging and pain injection treament in the past 15 years. Physical therapy and myotherapy multiple times in the past. Recent MRI shows: Multilevel cervical foraminal stenosis, diffuse canal stenosis with cord flattening. Future Testing and Treatments Planned None identified. Treatment Goals Patient/Caregiver Goals Patient is unsure if PT will help but is willing try. Patient would like to know exercises that would help improve her posture. 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 Functional Limitations- Mobility/Gait Limited to indoor amb when symptoms is present, otherwise tolerable certain outdoor distance walk. 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 Functional Limitations- Recreation/ None identified Hobbies Personal Factors Other Personal Factors That May Effect Fibromyalgia, chronicity of Therapy/Recovery the condition. Previous PT, and other medical treament with limited results. PT-OP-C Subjective Start: 05/21/19 09:46 Freq: Status: Active Protocol: Document 05/21/19 09:55 EA (Rec: 05/21/19 10:33 EA [id number]) OP-PT Subjective Patient Comments Patient Comments I dont know about occipital neuralgia' and I dont know how are you gonna help me. Patient states I am will to try PT to improve her posture and mobility. Patient Reported Progress Same Patient Questionnaires Neck Disability Index NDI Score 40 Neck Disability Index Impairment 80 to 99% Impaired (Score 40- 49) Quick Dash- Upper Extremity Quick Dash UE Score 66 Quick Dash UE Impairment 60 to 79% Impaired (Score 60- 79) PT-OP-E Functional Tests Start: 05/21/19 09:46 Freq: Status: Active Protocol: Document 05/21/19 09:55 EA (Rec: 05/21/19 10:33 EA [id number]) Functional Tests Apley's Scratch Test Action 1- Left post shoulder Action 1- Right post shoulder Action 2- Left T1 Action 2- Right T1 Action 3- Left T12 Action 3- Right T12 PT-OP-F Manual Assessment Start: 05/21/19 09:46 Freq: Status: Active Protocol: Document 05/21/19 09:55 EA (Rec: 05/21/19 10:33 EA [id number]) Manual Assessments Soft Tissue Assessment Soft Tissue Mobility Assessment Tight anterior shoulders and chest area. PT-OP-H Neuro Start: 05/21/19 09:46 Freq: Status: Active Protocol: Document 05/21/19 09:55 EA (Rec: 05/21/19 10:33 EA [id number]) Deep Tendon Reflex & Clonus Assessment Deep Tendon Reflex Right Bicep Deep Tendon Reflex 2+ Normal Left Bicep Deep Tendon Reflex 2+ Normal Vital Signs Comments Vital Signs Comments WNL PT-OP-J Posture/Palpation/Skin Start: 05/21/19 09:46 Freq: Status: Active Protocol: Document 05/21/19 09:55 EA (Rec: 05/21/19 10:33 EA [id number]) Posture Evaluation Comments Posture Comments Patient exhibited with moderate forward head with rounded shoulders. Palpation Assessment Location One Palpation Location Boht traps, Paracervicals, Scalene, LS Palpation Findings Soft Tissue Tightness Tenderness Trigger Point PT-OP-K Range of Motion Start: 05/21/19 09:46 Freq: Status: Active Protocol: Document 05/21/19 09:55 EA (Rec: 05/21/19 10:33 EA [id number]) Cervical Spine Range of Motion Cervical Spine Active Percentage Testing Position Sitting Flexion 80 Extension 65 Rotation Left 70 Rotation Right 70 Lateral Flexion Left 65 Lateral Flexion Right 65 ROM Limitations Soft Tissue Tightness Pain Shoulder Goniometric Range of Motion Shoulder Left Active Shoulder ROM WFL Yes Right Active Shoulder ROM WFL Yes PT-OP-M Strength Start: 05/21/19 09:46 Freq: Status: Active Protocol: Document 05/21/19 09:55 EA (Rec: 05/21/19 10:33 EA [id number]) Cervical Spine Strength Cervical Spine Manual Muscle Testing Reason Not Measured Pain Comments Patient MMT tested with no resistance in sitting, supine and SL: patient able to hold head against gravity. Shoulder Strength Shoulder Manual Muscle Testing Right Reason Not Measured Pain Comments Unable to perform MMT due to hypersensitivity, however spontaneous movement noted to at least 3/5 on both UE's. Left Reason Not Measured Pain Comments Unable to perform MMT due to hypersensitivity, however spontaneous movement noted to at least 3/5 on both UE's. Elbow/Forearm Strength Elbow and Forearm Manual Muscle Testing Right Reason Not Measured Pain Comments Unable to perform MMT due to hypersensitivity, however spontaneous movement noted to at least 3/5 on both UE's. Left Reason Not Measured Pain Comments Unable to perform MMT due to hypersensitivity, however spontaneous movement noted to at least 3/5 on both UE's. PT-OP-Q Treatments Start: 05/21/19 09:46 Freq: Status: Active Protocol: Document 05/21/19 09:55 EA (Rec: 05/21/19 10:33 EA [id number]) Self-Care/Home Management Treatment Education Patient Education Home Exercise Program Joint Protection Pain Management Posture PT-OP-T Assessment and Plan Start: 05/21/19 09:46 Freq: Status: Active Protocol: Document 05/21/19 09:55 EA (Rec: 05/21/19 10:33 EA [id number]) Physical Therapy Assessment Rehab Potential Rehabilitation Potential Fair Evaluation Complexity Number of Personal Factors/Comorbidities 1-2 Number of Body Systems Impaired 3 Clinical Presentation at Evaluation Unstable Impairments Impairments Activity Tolerance Functional Activities Functional Mobility Pain Posture ROM Soft Tissue Mobility Goals Four Impairment Impaired posture Prison Goal (LTG) Patient will exhibit normal posture to prevent cervical muscular imbalances and enhace patient's function. LTG Duration 4 wks Three Impairment Impaired sleep Prison Goal (LTG) Patient will sleep > 6 hrs without disturbance from neck pain. LTG Duration 4 wks Two Impairment Neck disability index score of 40/50 Meat Counter Clerk Goal (LTG) Patient will have score of <30 to enhance functional ADL's LTG Duration 4 wks One Impairment No HEP in place Meat Counter Clerk Goal (LTG) Patient will exhibit safe indepedent home exercise program LTG Duration 4 wks Assessment Summary Assessment Pleasant 58 y/o F patient with referring diagnosis of cervical spondylosis without radiculopathy. Today patient exhibits no acute distress and able to carry conversation with spontaneous head and arm movement without discomfort or guarding. Pt reports she took pain medication prior to todays session. Assessment reveals fair head to shoulder posture with tightness to both shoulder protractors. AROM reveals tightness limited cervical extension > SF> rotation>flexion. Proper MMT was not able to perform due to pain with pressure, however patient was able to perform cervical F/E/Rot/SF against gravity. Palpation reveals grade 2 tenderness over to both traps, scalene, lev scap. Patient is impaired to perform ADL's when pain severity is high and deficits limits patient functional ability with pain is lower. Patient would benefit with skilled PT addressing shoulder and neck dysfunction mentioned above. Physical Therapy Plan Frequency and Duration Frequency of Treatment 2x/Week Duration of Treatment 8 wks Plan of Care Start Date 05/21/19 Plan of Care End Date 07/16/19 Therapeutic Interventions Therapeutic Interventions Home Exercise Program Manual Therapy Patient/Caregiver Education Self-Care/Home Management Soft Tissue Mobilization Taping Therapeutic Exercises Modalities Cold Pack/Ice Massage Hot Packs Traction- Mechanical Ultrasound Next Visit Focus/Plan Next Note Type Treatment Note Next Visit Plan Provide HEP with images, Gentle neck ROm, gentle STM , Trial static vervical traction , modalities for pain
--- NOTE | 2019-05-21 17:22 | PT.OPPOC ---
Current Diagnoses Spondylosis without myelopathy or radiculopathy, cervical region (05/21/19) Provider Visit Care Team Role Provider Type Angella Marie Primary Care Provider Non-Staff Specialty: Medical Address: [address] [place] [address], [address], [place], [address] Fax: Email: Chencho Smith DO Attending Provider Physician Specialty: Physiatry Pain Management Address: [address] [place] [address], [id number] Email: Plan Of Care PT-OP-T Assessment and Plan Start: 05/21/19 09:46 Freq: Status: Active Protocol: Document 05/21/19 09:55 EA (Rec: 05/21/19 10:33 EA [id number]) Physical Therapy Assessment Rehab Potential Rehabilitation Potential Fair Evaluation Complexity Number of Personal Factors/Comorbidities 1-2 Number of Body Systems Impaired 3 Clinical Presentation at Evaluation Unstable Impairments Impairments Activity Tolerance Functional Activities Functional Mobility Pain Posture ROM Soft Tissue Mobility Goals Four Impairment Impaired posture Fpc Goal (LTG) Patient will exhibit normal posture to prevent cervical muscular imbalances and enhace patient's function. LTG Duration 4 wks Three Impairment Impaired sleep Sandwich Wrapper Goal (LTG) Patient will sleep > 6 hrs without disturbance from neck pain. LTG Duration 4 wks Two Impairment Neck disability index score of 40/50 Fpc Goal (LTG) Patient will have score of <30 to enhance functional ADL's LTG Duration 4 wks One Impairment No HEP in place Fpc Goal (LTG) Patient will exhibit safe indepedent home exercise program LTG Duration 4 wks Assessment Summary Assessment Pleasant 58 y/o F patient with referring diagnosis of cervical spondylosis without radiculopathy. Today patient exhibits no acute distress and able to carry conversation with spontaneous head and arm movement without discomfort or guarding. Pt reports she took pain medication prior to todays session. Assessment reveals fair head to shoulder posture with tightness to both shoulder protractors. AROM reveals tightness limited cervical extension > SF> rotation>flexion. Proper MMT was not able to perform due to pain with pressure, however patient was able to perform cervical F/E/Rot/SF against gravity. Palpation reveals grade 2 tenderness over to both traps, scalene, lev scap. Patient is impaired to perform ADL's when pain severity is high and deficits limits patient functional ability with pain is lower. Patient would benefit with skilled PT addressing shoulder and neck dysfunction mentioned above. Physical Therapy Plan Frequency and Duration Frequency of Treatment 2x/Week Duration of Treatment 8 wks Plan of Care Start Date 05/21/19 Plan of Care End Date 07/16/19 Therapeutic Interventions Therapeutic Interventions Home Exercise Program Manual Therapy Patient/Caregiver Education Self-Care/Home Management Soft Tissue Mobilization Taping Therapeutic Exercises Modalities Cold Pack/Ice Massage Hot Packs Traction- Mechanical Ultrasound Next Visit Focus/Plan Next Note Type Treatment Note Next Visit Plan Provide HEP with images, Gentle neck ROm, gentle STM , Trial static cervical traction , modalities for pain Plan of Care Dates Plan of Care Start Date 05/21/19 Plan of Care End Date 07/16/19 Please Sign and Return: I have reviewed this Plan of Care and certify that the skilled therapy services above are required to meet the patient?s needs. Physician Signature Date Printed Name and Credentials Clinical Instructor Signature Printed Name and Credentials
--- NOTE | 2019-05-23 09:13 | PT.OTN ---
Current Diagnoses Spondylosis without myelopathy or radiculopathy, cervical region (05/23/19) Physical Therapy Treatment Note PT-OP-A Visit Information Start: 05/21/19 09:46 Freq: Status: Active Protocol: Document 05/23/19 09:01 SA (Rec: 05/23/19 09:13 SA [id number]) Out-Patient Physical Therapy Visit Information Visit Information Visit Type Treatment Note Visit Start Time 07:30 Visit Stop Time 08:15 Total Visit Minutes 45 Visit Number 2 Number of LABORER POULTRY HATCHERY Visits 1 PT-OP-B Current Condition Start: 05/21/19 09:46 Freq: Status: Active Protocol: Document 05/21/19 09:55 EA (Rec: 05/21/19 10:33 EA [id number]) Current Condition History of Current Condition Onset Date 15 years ago Current Complaints occipital and left lateral neck and shoulder pain. History of Current Condition Patient reports that she was not able to scheduled PT since last PT evaluation due to pain treament that she had at pain clinic; she reports that MRI recently reveals that she has a lot of neck osteoarthritis. Aside from having arthritis to cervical region, she believes pain last night is maybe due to occipital trigeminal neuralgia . She reports medication helps and hot compress helps a bit. Prior Treatments and Tests Multiple cervical and head diagnostic imaging and pain injection treament in the past 15 years. Physical therapy and myotherapy multiple times in the past. Recent MRI shows: Multilevel cervical foraminal stenosis, diffuse canal stenosis with cord flattening. Future Testing and Treatments Planned None identified. Treatment Goals Patient/Caregiver Goals Patient is unsure if PT will help but is willing try. Patient would like to know exercises that would help improve her posture. 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 Functional Limitations- Mobility/Gait Limited to indoor amb when symptoms is present, otherwise tolerable certain outdoor distance walk. 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 Functional Limitations- Recreation/ None identified Hobbies Personal Factors Other Personal Factors That May Effect Fibromyalgia, chronicity of Therapy/Recovery the condition. Previous PT, and other medical treament with limited results. PT-OP-C Subjective Start: 05/21/19 09:46 Freq: Status: Active Protocol: Document 05/23/19 09:01 SA (Rec: 05/23/19 09:13 SA [id number]) OP-PT Subjective Patient Comments Patient Comments Pt reports feeling about the same, tolerated initial eval well and hopes to get some pain relief. PT-OP-E Functional Tests Start: 05/21/19 09:46 Freq: Status: Active Protocol: Document 05/21/19 09:55 EA (Rec: 05/21/19 10:33 EA [id number]) Functional Tests Apley's Scratch Test Action 1- Left post shoulder Action 1- Right post shoulder Action 2- Left T1 Action 2- Right T1 Action 3- Left T12 Action 3- Right T12 PT-OP-F Manual Assessment Start: 05/21/19 09:46 Freq: Status: Active Protocol: Document 05/21/19 09:55 EA (Rec: 05/21/19 10:33 EA [id number]) Manual Assessments Soft Tissue Assessment Soft Tissue Mobility Assessment Tight anterior shoulders and chest area. PT-OP-H Neuro Start: 05/21/19 09:46 Freq: Status: Active Protocol: Document 05/21/19 09:55 EA (Rec: 05/21/19 10:33 EA [id number]) Deep Tendon Reflex & Clonus Assessment Deep Tendon Reflex Right Bicep Deep Tendon Reflex 2+ Normal Left Bicep Deep Tendon Reflex 2+ Normal Vital Signs Comments Vital Signs Comments WNL PT-OP-J Posture/Palpation/Skin Start: 05/21/19 09:46 Freq: Status: Active Protocol: Document 05/21/19 09:55 EA (Rec: 05/21/19 10:33 EA [id number]) Posture Evaluation Comments Posture Comments Patient exhibited with moderate forward head with rounded shoulders. Palpation Assessment Location One Palpation Location Boht traps, Paracervicals, Scalene, LS Palpation Findings Soft Tissue Tightness Tenderness Trigger Point PT-OP-K Range of Motion Start: 05/21/19 09:46 Freq: Status: Active Protocol: Document 05/21/19 09:55 EA (Rec: 05/21/19 10:33 EA [id number]) Cervical Spine Range of Motion Cervical Spine Active Percentage Testing Position Sitting Flexion 80 Extension 65 Rotation Left 70 Rotation Right 70 Lateral Flexion Left 65 Lateral Flexion Right 65 ROM Limitations Soft Tissue Tightness Pain Shoulder Goniometric Range of Motion Shoulder Left Active Shoulder ROM WFL Yes Right Active Shoulder ROM WFL Yes PT-OP-M Strength Start: 05/21/19 09:46 Freq: Status: Active Protocol: Document 05/21/19 09:55 EA (Rec: 05/21/19 10:33 EA [id number]) Cervical Spine Strength Cervical Spine Manual Muscle Testing Reason Not Measured Pain Comments Patient MMT tested with no resistance in sitting, supine and SL: patient able to hold head against gravity. Shoulder Strength Shoulder Manual Muscle Testing Right Reason Not Measured Pain Comments Unable to perform MMT due to hypersensitivity, however spontaneous movement noted to at least 3/5 on both UE's. Left Reason Not Measured Pain Comments Unable to perform MMT due to hypersensitivity, however spontaneous movement noted to at least 3/5 on both UE's. Elbow/Forearm Strength Elbow and Forearm Manual Muscle Testing Right Reason Not Measured Pain Comments Unable to perform MMT due to hypersensitivity, however spontaneous movement noted to at least 3/5 on both UE's. Left Reason Not Measured Pain Comments Unable to perform MMT due to hypersensitivity, however spontaneous movement noted to at least 3/5 on both UE's. PT-OP-Q Treatments Start: 05/21/19 09:46 Freq: Status: Active Protocol: Document 05/23/19 09:01 SA (Rec: 05/23/19 09:13 SA [id number]) Therapeutic Exercises Supine Exercises PPT with TrA activation Reps/Minutes 5 x 10 Comments cues for breathing Supine thoracic EXT stretch Side bilateral Equipment Used towel roll Reps/Minutes 3 min Sitting Exercises Scapular rows Side bilateral Reps/Minutes 20x Comments postural cues UT/Levator stretch Side bilateral Reps/Minutes 30 x 3 each chin tucks Side bilateral Reps/Minutes 20x Manual Therapy Treatment Soft Tissue Mobilization Sub-occipital release Body Location Sub-Occipital Mobilization Type Rolling Sustained Pressure Intensity/Depth Superficial Body Position Supine STM/MFR L UT/Levator/Scalenes Body Location L UT/Levator/Scalenes Mobilization Type Myofascial Release Rolling Strumming Trigger Point Release Intensity/Depth Moderate Body Position Sidelying Comments Well tolerated PT-OP-T Assessment and Plan Start: 05/21/19 09:46 Freq: Status: Active Protocol: Document 05/23/19 09:01 SA (Rec: 05/23/19 09:13 SA [email or web address]) Physical Therapy Assessment Assessment Summary Assessment Education on HEP and handout given to continue at home, Pt tolerated session well. Plans to progress PPT with LE movements and re-visit next session. Physical Therapy Plan Next Visit Focus/Plan Next Note Type Treatment Note Next Visit Plan Provide HEP with images, Gentle neck ROm, gentle STM , Trial static cervical traction , modalities for pain
--- NOTE | 2019-07-14 17:17 | PT-OP ANOTE ---
Spoke by phone today and patient states she will check with pain management doctor before discharging in PT.
--- NOTE | 2019-09-25 15:53 | PT.OPDS ---
Current Diagnoses Spondylosis without myelopathy or radiculopathy, cervical region (05/23/19) Visit Care Team Role Provider Type Angella Marie Primary Care Provider Non-Staff Specialty: Medical Address: [address] [place] [address] [address], [address], [place], [address] Fax: Email: Chencho Smith DO Attending Provider Physician Specialty: Physiatry Pain Management Address: [address] [place], [address] Email: [email or web address] Visit Number Visit Number 2 Discharge Summary PT-OP-B Current Condition Start: 05/21/19 09:46 Freq: Status: Active Protocol: Document 05/21/19 09:55 EA (Rec: 05/21/19 10:33 EA [id number]) Current Condition History of Current Condition Onset Date 15 years ago Current Complaints occipital and left lateral neck and shoulder pain. History of Current Condition Patient reports that she was not able to scheduled PT since last PT evaluation due to pain treament that she had at pain clinic; she reports that MRI recently reveals that she has a lot of neck osteoarthritis. Aside from having arthritis to cervical region, she believes pain last night is maybe due to occipital trigeminal neuralgia . She reports medication helps and hot compress helps a bit. Prior Treatments and Tests Multiple cervical and head diagnostic imaging and pain injection treament in the past 15 years. Physical therapy and myotherapy multiple times in the past. Recent MRI shows: Multilevel cervical foraminal stenosis, diffuse canal stenosis with cord flattening. Future Testing and Treatments Planned None identified. Treatment Goals Patient/Caregiver Goals Patient is unsure if PT will help but is willing try. Patient would like to know exercises that would help improve her posture. 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 Functional Limitations- Mobility/Gait Limited to indoor amb when symptoms is present, otherwise tolerable certain outdoor distance walk. 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 Functional Limitations- Recreation/ None identified Hobbies Personal Factors Other Personal Factors That May Effect Fibromyalgia, chronicity of Therapy/Recovery the condition. Previous PT, and other medical treament with limited results. PT-OP-C Subjective Start: 05/21/19 09:46 Freq: Status: Active Protocol: Document 05/23/19 09:01 SA (Rec: 05/23/19 09:13 SA [id number]) OP-PT Subjective Patient Comments Patient Comments Pt reports feeling about the same, tolerated initial eval well and hopes to get some pain relief. PT-OP-E Functional Tests Start: 05/21/19 09:46 Freq: Status: Active Protocol: Document 05/21/19 09:55 EA (Rec: 05/21/19 10:33 EA [id number]) Functional Tests Apley's Scratch Test Action 1- Left post shoulder Action 1- Right post shoulder Action 2- Left T1 Action 2- Right T1 Action 3- Left T12 Action 3- Right T12 PT-OP-F Manual Assessment Start: 05/21/19 09:46 Freq: Status: Active Protocol: Document 05/21/19 09:55 EA (Rec: 05/21/19 10:33 EA [id number]) Manual Assessments Soft Tissue Assessment Soft Tissue Mobility Assessment Tight anterior shoulders and chest area. PT-OP-H Neuro Start: 05/21/19 09:46 Freq: Status: Active Protocol: Document 05/21/19 09:55 EA (Rec: 05/21/19 10:33 EA [id number]) Deep Tendon Reflex & Clonus Assessment Deep Tendon Reflex Right Bicep Deep Tendon Reflex 2+ Normal Left Bicep Deep Tendon Reflex 2+ Normal Vital Signs Comments Vital Signs Comments WNL PT-OP-J Posture/Palpation/Skin Start: 05/21/19 09:46 Freq: Status: Active Protocol: Document 05/21/19 09:55 EA (Rec: 05/21/19 10:33 EA [id number]) Posture Evaluation Comments Posture Comments Patient exhibited with moderate forward head with rounded shoulders. Palpation Assessment Location One Palpation Location Boht traps, Paracervicals, Scalene, LS Palpation Findings Soft Tissue Tightness, Tenderness,Trigger Point PT-OP-K Range of Motion Start: 05/21/19 09:46 Freq: Status: Active Protocol: Document 05/21/19 09:55 EA (Rec: 05/21/19 10:33 EA [id number]) Cervical Spine Range of Motion Cervical Spine Active Percentage Testing Position Sitting Flexion 80 Extension 65 Rotation Left 70 Rotation Right 70 Lateral Flexion Left 65 Lateral Flexion Right 65 ROM Limitations Soft Tissue Tightness,Pain Shoulder Goniometric Range of Motion Shoulder Left Active Shoulder ROM WFL Yes Right Active Shoulder ROM WFL Yes PT-OP-M Strength Start: 05/21/19 09:46 Freq: Status: Active Protocol: Document 05/21/19 09:55 EA (Rec: 05/21/19 10:33 EA [id number]) Cervical Spine Strength Cervical Spine Manual Muscle Testing Reason Not Measured Pain Comments Patient MMT tested with no resistance in sitting, supine and SL: patient able to hold head against gravity. Shoulder Strength Shoulder Manual Muscle Testing Right Reason Not Measured Pain Comments Unable to perform MMT due to hypersensitivity, however spontaneous movement noted to at least 3/5 on both UE's. Left Reason Not Measured Pain Comments Unable to perform MMT due to hypersensitivity, however spontaneous movement noted to at least 3/5 on both UE's. Elbow/Forearm Strength Elbow and Forearm Manual Muscle Testing Right Reason Not Measured Pain Comments Unable to perform MMT due to hypersensitivity, however spontaneous movement noted to at least 3/5 on both UE's. Left Reason Not Measured Pain Comments Unable to perform MMT due to hypersensitivity, however spontaneous movement noted to at least 3/5 on both UE's. PT-OP-T Assessment and Plan Start: 05/21/19 09:46 Freq: Status: Active Protocol: Document 09/25/19 15:53 IJS (Rec: 09/25/19 15:53 IJS [email or web address]) Physical Therapy Plan Discharge Physical Therapy Discharge Reasons No Longer Attending PT Discharge Comments Patient was last seen on May 23, 2019. No further appointments are scheduled.
== END 2019-10-03 13:48 ==
LOC: PHYS 07:30
PROVIDERS: PCP Family Medicine; Visit Provider Physical Medicine & Rehabilitation
DX: M47.812 Spondylosis without myelopathy or radiculopathy, cervical region (principal)
CPT/HCPCS: 97110; 97140; 97162; 97535

== ENCOUNTER → 2019-07-31 06:13 | Outpatient (CLI) | payer BC, SELFPAY ==
--- NOTE | 2019-07-31 | DI.MRI.S_ITS ---
PROCEDURE: MR BRAIN (PITUITARY) WWO CON INDICATIONS: Benign intracranial hypertension TECHNIQUE: Noncontrast sagittal and axial FLAIR, axial gradient echo, axial diffusion and ADC through the brain. Thin-slice sagittal and coronal T1 spin echo, coronal T2 fast spin echo through the pituitary. After the administration contrast, optional dynamic coronal T1 spin echo, thin-slice coronal and sagittal T1 spin echo images through the pituitary fossa; axial T1 spin echo with fat saturation through the brain. COMPARISON: [facility], MR, MR CERVICAL SPINE WO CON, 04/17/2019, 7:46. Outside Facility, RG, CT HEAD W/O CONTRAST, 09/30/2018, 13:50. Outside Facility, RG, CT HEAD / NECK ANGIO, 10/01/2018, 15:24. Outside Facility, RG, MRI HEAD W/WO CONTRAST, 09/30/2018, 18:58. FINDINGS: Image quality: Diagnostic, with note made of motion artifact. Pituitary Gland: The pituitary gland is largely flattened along the floor the sella turcica, which is consistent with the given history of benign intracranial hypertension. The sella turcica itself appears enlarged. On the postcontrast imaging, no masses or abnormally enhancing areas are seen. The pituitary stalk and infundibulum have an unremarkable appearance. A normal appearing pituitary bright spot is seen posteriorly on the precontrast sagittal T1-weighted images. The optic chiasm and the ventral forebrain have an unremarkable appearance. CSF Spaces: Ventricles are normal in size and shape. Basal cisterns are patent. No extra-axial fluid collections. Brain: In this patient with this given history, scrutiny is given to the globes. The posterior globes do not appear flattened. In fact, they appear slightly elongated. No abnormal fluid can be seen along the optic nerves. The Meckel's caves likewise appear unremarkable. No intracranial bleeds or mass effects. No abnormal intracranial enhancement. Littlejohn-white matter interface is intact. Diffusion weighted images demonstrate no acute ischemic insults. Brainstem is normal. Normal intravascular flow voids are present. Skull and face: Calvarial marrow is normal in signal. Orbits appear normal. Note is made of bilateral lens replacements. Sinuses: Sinuses and mastoids are clear. IMPRESSION: The pituitary tissue is flattened along the floor of the sella turcica, which appears enlarged. This is consistent with the given history of benign intracranial hypertension. The pituitary otherwise demonstrates an unremarkable appearance. Dictated by: Jon Smalls M.D. on 07/31/2019 at 8:32 Approved by: Jon Smalls M.D. on 07/31/2019 at 8:40
== END ==
PROVIDERS: PCP Family Medicine; Visit Provider Ophthalmology
DX: G93.2 Benign intracranial hypertension (principal)
CPT/HCPCS: 70553

== ENCOUNTER 2019-08-19 09:45 | Outpatient (CLI) | payer BC, SELFPAY ==
[2019-08-19] VITALS (10 sets, daily range): BP systolic 111–146; BP diastolic 65–91; PULSE 76–95; RESP 16–18; TEMP 36.9; O2SAT 98–100
--- NOTE | 2019-08-19 09:49 | DI.RAD.S_ITS ---
PROCEDURE: PAIN C/T INTERLAMINAR INJECT INDICATIONS: CERVICALGIA FINDINGS: Fluoroscopic spot filming was performed to verify placement of spinal needles at the C6-C7 level(s), as labeled on the films. Appropriate location(s) of the needle tip(s) was confirmed by injection of iodinated contrast. Dictated by: Jaydon Rivera M.D. on 08/19/2019 at 14:57 Approved by: Jaydon Rivera M.D. on 08/19/2019 at 14:58
[2019-08-19] MEDS: MIDAZOLAM 5 MG/5 ML VIAL IV (10:53)
[2019-08-19] MEDS: fentaNYL 100 MCG/2 ML INJ 50 MCG IV (10:53)
[2019-08-19] MEDS: IOPAMIDOL 15 ML VIAL 3 ML INJ (11:12)
[2019-08-19] MEDS: DEXAMETHASONE 10 MG/ML VIAL 30 MG INJ (11:13)
--- NOTE | 2019-08-19 11:16 | P.PCN_ITS ---
Procedures Date/Time Date of procedure: 08/19/19 Time of procedure: 11:16 General Procedure description: PREOP DIAGNOSIS 1. CERVICAL STENOSIS, 2. CERVICAL HNP WITH UPPER EXTREMITY RADICULAR FEATURES, POST OP DIAGNOSIS 1. CERVICAL STENOSIS, 2. CERVICAL HNP WITH UPPER EXTREMITY RADICULAR FEATURES, PROCEDURES 1. FLUORSCOPICALLY GUIDED CONTRAST CONTROLLED INTERLAMINAR EPIDURAL STEROID INJECTION - C6/7 TL UNIQUE PHYSICIAN: Chencho Smith DO INDICATIONS Nora is referred by Dr. Marie for treatment of Cervical HNP with Upper Extremity Paresthesias. FINDINGS Cervical Stenosis due to disc deterioration and nerve root irritation and nerve root irritation DESCRIPTION OF PROCEDURE Fluoroscopically guided, contrast-controlled C6/7 translaminar epidural steroid injection with conscious sedation. Following review of allergy and review of potential side effects and complications, including, but not necessarily limited to, infection, allergic reaction, local tissue breakdown, temporary as well as permanent nerve injury, stroke, paralysis, and possible , the patient indicated that patient understood and agreed to proceed. An informed consent document was signed by the patient, witnessed by a nurse, and placed in the patient's chart. Additionally, other treatment options including modalities, medications, and physical therapy were reviewed with the patient. After review of previous anaesthesic history and IV conscious sedation the patient was deemed safe to proceed with todays procedure with IV conscious sedation as ASA class II designation. Safety time-out was performed to confirm patient ID, procedure to be performed and site of procedure. IV sedation was accomplished with a combination of 3mg of Versed and 50mcg of Fentanyl administered by the RN after DO order, titrated to patient comfort during the course of the procedure while the patient remained responsive to all verbal commands. In the prone position, following sterile prep and drape of the cervical region, the C6/7 translaminar space was identified fluoroscopically. The skin was anesthetized via a 25-gauge 1.5-inch needle with 1% lidocaine solution. At this point, a 25-gauge, 2.5-inch short bevel spinal needle was atraumatically in troduced and advanced under fluoroscopic guidance into epidural space at the C6/7 translaminar space. Depth was confirmed on lateral view. Radiological data, including multiple fluoroscopic views of the cervical spine, reveal a spinal needle at the C6/7 translaminar space. Lateral views then show placement of the needle in the epidural space. Subsequent views show contrast material flowing superiorly and inferiorly in the epidural space. DSA fluoroscopy with live contrast injection, once again, confirmed no vascular or intrathecal uptake. At this point, using loss of resistance technique with saline and air, the epidural space was entered. Following negative aspiration, injection of approximately 1.5 cc of Isovue-200 with live fluoroscopy in the AP view confirmed epidural flow in the epidural space without vascular or intrathecal uptake observed. Subsequently, a test dose of 1 cc of 1% lidocaine solution was injected and patient was observed for two minutes without signs or symptoms of complications, including abdominal pain, shortness of breath, bilateral upper or lower extremity weakness, nausea and vomiting, prior to steroid injection. At this point, 2cc or 20mg of dexamethasone was then injected without incident. The patient tolerated the procedure well without signs or symptoms of complications prior to being transferred to the recovery area for further monit oring, The patient was then transferred to the recovery area where they were observed for an appropriate period of time after the injection. The patient reported a VAS score of 6 prior to the procedure and a post-procedure VAS of 0. Total Fluoroscopy Time: 37.0 seconds Total Conscious Time: 24min POST OP INSTRUCTIONS The patient was provided a Pain Log to continue to record their response to the target-specific procedure prior to follow-up visit with the referring provider. Additionally, specific post-injection care instructions and a contact number to our office were provided if concerns arise regarding possible complications associated with the procedure are suspected. Chencho Smith DO Complications: none
--- NOTE | 2019-08-19 11:41 | DI.RAD.S_ITS ---
PROCEDURE: XR LUMBAR SPINE MIN 4V INDICATIONS: Acute LBP TECHNIQUE: 5 views of the lumbar spine were acquired. COMPARISON: None. FINDINGS: Bones: No fracture or focal osseous destruction. Multilevel degenerative endplate sclerosis and spurring. Diffuse facet arthropathy. Straightening of the normal lordotic curvature. Trace retrolisthesis of L3 on L4. Diffuse mild narrowing of the lower thoracic and lumbar disc spaces. Bilateral hip joint degeneration. No pars defects identified Soft tissues: Overlying bowel gas pattern is normal. No suspicious soft tissue calcifications. IMPRESSION: Diffuse lower thoracic and lumbar spondylosis as well as facet arthropathy. Mild bilateral hip joint degeneration. No fracture. Trace retrolisthesis of L3 on L4 Dictated by: Jaydon Rivera M.D. on 08/19/2019 at 15:04 Approved by: Jaydon Rivera M.D. on 08/19/2019 at 15:06
--- NOTE | 2019-08-19 11:54 | PC.NURSE ---
1118 return via w/c , post procedure, able to transfer self with minimal assist, assuming care from Alicja Quiros Rn, snacks provided, tolerated well.
--- NOTE | 2019-08-19 14:42 | PC.NURSE ---
1118 rtr via w/c, post procedure, stable, snacks provided and tolerated. assume care from Libia SEVERINO
== END 2019-08-19 11:45 | disposition home or self-care (01) ==
LOC: RAD 09:47
PROVIDERS: PCP Family Medicine; Visit Provider Physical Medicine & Rehabilitation
DX: M48.02 Spinal stenosis, cervical region (principal); M50.123 Cervical disc disorder at C6-C7 level with radiculopathy; R20.2 Paresthesia of skin
CPT/HCPCS: 62321; 72110; 99152; J1100; J2250; J3010

== ENCOUNTER 2022-02-07 14:09 | Emergency (ER) | payer BC, SELFPAY ==
[2022-02-07] VITALS (9 sets, daily range): BP systolic 132–152; BP diastolic 70–85; PULSE 101–115; RESP 14–20; O2SAT 98–100; BMI 31.4
--- NOTE | 2022-02-07 14:17 | DI.CT.S_ITS ---
PROCEDURE: CT STROKE INDICATIONS: code stroke TECHNIQUE: Noncontrast 4.5 mm thick angled axial sections acquired from the foramen magnum to the vertex, with coronal reformats. For radiation dose reduction, the following was used: automated exposure control, adjustment of mA and/or kV according to patient size. COMPARISON: None. FINDINGS: Image quality: Excellent. CSF spaces: Basal cisterns are patent. No extra-axial fluid collections. The ventricles are symmetric in size and shape. Brain: No intracranial bleeds or masses. There is cerebral volume loss for age, with resultant ventricular and sulcal prominence. There are periventricular and deep white matter chronic small vessel ischemic changes. There is intracranial internal carotid artery atherosclerosis. Skull and face: Calvarium and visualized facial bones appear intact, without suspicious lesions. Swelling noted in the right periorbital facial soft tissues. Sinuses: Visualized sinuses and mastoids are clear. IMPRESSION: No acute intracranial disease process. Findings telephoned to Dr. Morris on February 07, 2022 at 2:42 p.m. This study fulfills neurological imaging criteria for inclusion or exclusion of acute stroke therapies based on available published neurological guidelines. Dictated by: Ethel Sarabia MD, PhD on 02/07/2022 at 14:41 Approved by: Ethel Sarabia MD, PhD on 02/07/2022 at 14:45
[2022-02-07 14:38] LABS: Add Manual Diff / Slide Review NO; Basophils Absolute Auto 100 /uL (0-100); Eosinophils Absolute Auto 200 /uL (0-450); Eosinophils Percent Auto 2.6 % (2-4); Hematocrit 38.4 % (36-46); Hemoglobin 12.9 g/dL (12.0-16.0); Lymphocytes Absolute Auto 2700 /uL (1100-4500); Mean Corpuscular HGB Conc 33.7 % (30-36); Mean Corpuscular Hemoglobin 27.4 PG (26-34); Mean Corpuscular Volume 81.3 fL (80-100); Monocytes Absolute Auto 600 /uL (0-900); Monocytes Percent Auto 7.3 % (3-14); Neutrophils Absolute Auto 4000 /uL (1500-7000); Neutrophils Percent Auto 53.1 % (50-75); Platelet Count 250 X10^3/uL (150-400); Red Blood Cell Count 4.72 X10^6/uL (4.0-5.2); Red Cell Distribution Width 14.7 % (11.6-14.8); White Blood Cell Count 7.6 X10^3/uL (4.5-11.0)
--- NOTE | 2022-02-07 14:41 | ED.GENADULT ---
HPI - General Adult General Chief complaint: Neuro Symptoms/Deficit Stated complaint: Possible stroke. Doctor at told her to come in Time Seen by Provider: 02/07/22 14:16 Source: patient Mode of arrival: Ambulatory Limitations: no limitations History of Present Illness HPI narrative: Patient is a 61-year-old female who is here for evaluation of right-sided facial swelling and drooping. She went to bed last evening without symptoms. Woke up this morning in the middle the night with her presenting symptoms. She rides greater than 4-1/2 hours after onset of symptoms. She does have a history of trigeminal neuralgia. Also has a history of hemiplegic migraines. Also has a history of cystic acne. She states that she is having drooping of the right side of her face. Unable to open her right eye. Some weakness of the right side of her body. She is taking all other medications as directed. She contacted her neurologist at the [facility] told her to come in to be evaluated. Related Data Home Medications Medication Instructions Recorded Confirmed glimepiride 2 mg tablet 2 mg PO BID 12/30/18 09/15/19 metformin 1,000 mg tablet 1,000 mg PO QPM 12/30/18 09/15/19 metformin 500 mg tablet 500 mg PO QAM 12/30/18 09/15/19 nifedipine 60 mg tablet,extended 60 mg PO DAILY 12/30/18 09/15/19 release 24 hr topiramate 50 mg tablet 50 mg PO BID 12/30/18 09/15/19 Previous Rx's Medication Instructions Recorded prazosin 1 mg capsule 1 mg PO BEDTIME #45 cap MDD 2 08/14/19 prednisone 10 mg tablet 10 mg PO QID #30 tab 08/15/19 celecoxib 200 mg capsule (Celebrex) 200 mg PO DAILY #30 cap 08/27/19 lithium carbonate 150 mg capsule 300 mg PO BEDTIME #30 cap 09/15/19 oxycodone-acetaminophen 5 mg-325 1 tab PO Q8H PRN #10 tab 09/15/19 mg tablet hydroxyzine pamoate 25 mg capsule 25 mg PO TID PRN #90 cap 09/18/19 duloxetine 20 mg capsule,delayed See Rx Instructions PO BID #60 cap 09/24/19 release furosemide 20 mg tablet (Lasix) 20 mg PO QAM #30 tab 10/07/19 tizanidine 4 mg capsule 4 mg PO BEDTIME PRN #30 cap 10/14/19 lidocaine 5 % topical patch 1 patch TOP DAILY #15 each MDD 12 11/10/19 hours in a 24 hour period gabapentin 300 mg capsule 300 mg PO TID #90 cap 12/23/19 Allergies Allergy/AdvReac Type Severity Reaction Status Date / Time NEEL Inhibitors Allergy Severe swelling Verified 10/07/19 08:39 and sob Review of Systems Review of Systems ROS Unobtainable: All systems reviewed & are unremarkable except as noted in HPI and below Patient History Medical History Bilateral occipital neuralgia Cervicogenic headache Chronic neck pain Diabetes Intracranial hypertension Intractable migraine with aura without status migrainosus Lumbosacral spondylosis with radiculopathy Social History household members: spouse Smoking Status: Never smoker Smoking Status: Never smoker alcohol intake frequency: holidays/special occasions only Substance Use Type: does not use Exam Initial Vital Signs Initial Vital Signs: Vital Signs Pulse Rate 115 H 02/07/22 14:10 Respiratory Rate 20 02/07/22 14:10 Blood Pressure 144/85 H 02/07/22 14:10 Pulse Oximetry 99 02/07/22 14:10 HENMT Head: normal to inspection and normocephalic Nose: external nose normal Mouth: oral mucosae normal Eyes Pupils: PERRL Resp Effort & Inspection: normal respiratory effort Auscultation: clear to auscultation bilaterally Cardio Rate: regular rate Rhythm: regular rhythm Skin Other: Patient does have a well-healed wound to her right jew. She also has a scar in between her eyebrows that is well healed. She does have a small wound in her right eyebrow area as that has minimal surrounding erythema. Neuro Speech: speech normal Other: Patient is alert oriented x3. She does have drooping of the right side of the face and decreased sensation the right-sided face compared left. She has equal strength bilateral upper and lower extremities. Is able to do [id number] bilaterally. She is able to go care home up her left rhodes with [id number] however states she cannot go up any further because of weakness. Extrem General: normal to inspection and capillary refill normal Psych Appearance: grossly normal Scores GCS [place] coma scale eye opening: Spontaneous [place] coma scale verbal response: Orientated Birdie coma scale motor response: Obey commands Birdie coma scale total score: 15 NIH Stroke Scale Level of Conciousness: Alert, keenly responsive Ask month/age: Answers both questions correctly. Open/close eyes, close hand: Performs both tasks correctly Best gaze horizontal: Normal Visual chaudhary: No visual loss Facial palsy: Partial paralysis, total or near total paralysis of lower face Left arm drift: No drift for full 10 sec Right arm drift: No drift for full 10 sec Left leg drift: No drift for full 5 sec Right leg drift: No drift for full 5 sec Limb ataxia: Absent Sensory on face/arms/legs: Mild to moderate sensory loss, can tell touch Best language: No aphasia, normal Dysarthria: Normal Extinction or inattention: No abnormality Total NIH Stroke scale score: 3 Course Orders Ordered: ED Orders 02/07/22 14:17 CT Stroke Stat 02/07/22 14:27 Complete Blood Count AUTO DIFF Stat Comprehensive Metabolic Panel Stat Lipase Stat Partial Thromboplastin Time Stat Prothrombin Time INR Stat Troponin & CK Cardiac Panel Stat 02/07/22 14:35 EKG-12 Lead Stat Discontinued Medications Diphenhydramine HCl (Diphenhydramine 50 Mg/Ml Vial) 25 mg IV NOW ONE Stop: 02/07/22 15:38 Last Admin: 02/07/22 16:02 Dose: 25 mg Documented by: CRISTEL Sodium Chloride (Normal Saline 0.9%) 1,000 mls @ 1,000 mls/hr IV BOLUS ONE Stop: 02/07/22 16:36 Last Infusion: 02/07/22 17:13 Dose: 0 mls/hr Documented by: Admin: 02/07/22 16:03 Dose: 1,000 mls/hr Documented by: CRISTEL Metoclopramide HCl (Metoclopramide 10 Mg/2 Ml Inj) 10 mg IV NOW ONE Stop: 02/07/22 15:38 Last Admin: 02/07/22 16:03 Dose: 10 mg Documented by: CRISTEL Vital Signs Vital signs: Vital Signs - 8 hr 02/07/22 14:10 02/07/22 14:51 02/07/22 14:52 Pulse Rate 115 H 113 H 108 H Respiratory Rate 20 Blood Pressure 144/85 H 152/78 H Pulse Oximetry 99 100 99 02/07/22 15:00 02/07/22 15:30 02/07/22 16:00 Pulse Rate 103 H 112 H 107 H Respiratory Rate 17 14 16 Blood Pressure 132/71 148/71 H 152/70 H Pulse Oximetry 100 99 99 02/07/22 16:30 02/07/22 17:00 02/07/22 17:30 Pulse Rate 104 H 101 H 104 H Respiratory Rate 18 17 16 Blood Pressure Pulse Oximetry 100 98 99 Medical Decision Making Lab Data Lab results reviewed: Yes I reviewed the patient's lab results. Result diagrams: 02/07/22 14:27 02/07/22 14:27 Labs: Lab Results 02/07/22 02/07/22 02/07/22 Range/Units 14:27 14:27 14:27 WBC 7.6 (4.5-11.0) X10^3/uL RBC 4.72 (4.0-5.2) X10^6/uL Hgb 12.9 (12.0-16.0) g/dL Hct 38.4 (36-46) % MCV 81.3 (80-100) fL MCH 27.4 (26-34) PG MCHC 33.7 (30-36) % RDW 14.7 (11.6-14.8) % Plt Count 250 (150-400) X10^3/uL Neut % (Auto) 53.1 (50-75) % Lymph % (Auto) 36.0 (25-40) % Laurens % (Auto) 7.3 (3-14) % Eos % (Auto) 2.6 (2-4) % Baso % (Auto) 1.0 (0-2) % Neut # (Auto) 4000 (1430-9915) /uL Lymph # (Auto) 2700 (6139-0375) /uL Laurens # (Auto) 600 (0-900) /uL Eos # (Auto) 200 (0-450) /uL Baso # (Auto) 100 (0-100) /uL PT 10.0 L (10.1-12.7) SECONDS INR 0.9 (0.9-1.3) APTT 32 (26.4-36.2) SECONDS Sodium 136 L (137-145) mmol/L Potassium 3.9 (3.4-5.1) mmol/L Chloride 102 (98-107) mmol/L Carbon Dioxide 23 (22-32) mmol/L BUN 19 H (7-17) mg/dL Creatinine 0.72 (0.52-1.04) mg/dL Estimated GFR > 60.0 (>60) mL/min BUN/Creatinine Ratio 26.4 H (6-22) Glucose 413 H (70-100) mg/dL Calcium 9.8 (8.4-10.2) mg/dL Total Bilirubin 0.3 (0.2-1.3) mg/dL AST 28 (14-36) IU/L ALT 20 (<35) IU/L Alkaline Phosphatase 112 (38-126) U/L Total Creatine Kinase 80 (30-135) U/L CK-MB (CK-2) TNP CK-MB (CK-2) Rel Index TNP Troponin I < 0.012 (0.01-0.034) ng/mL Total Protein 7.7 (6.3-8.2) g/dL Albumin 4.4 (3.5-5.0) g/dL Globulin 3.3 (1.7-4.1) g/dL Albumin/Globulin Ratio 1.3 (1.0-2.8) Lipase 59 (23-300) U/L Imaging Data CT scan - head: Radiologist's Impression: Launch?[place] [address] CT Scan Report Signed Patient: Nora Drummond MR#: [id number] : 1960 Acct:[id number] Age/Sex: 61 / F Date of Service: 02/07/22 Loc: ED Accession Number: [id number] ?? Procedure: CT Stroke Ordering Provider: Ha Morris D.O. PROCEDURE:? CT STROKE ? INDICATIONS:? code stroke ? TECHNIQUE:? Noncontrast 4.5 mm thick angled axial sections acquired from the foramen magnum to the vertex, with coronal reformats.? For radiation dose reduction, the following was used:? automated exposure control, adjustment of mA and/or kV according to patient size.? ? COMPARISON:? None. ? FINDINGS:? Image quality:? Excellent.? ? CSF spaces:? Basal cisterns are patent.? No extra-axial fluid collections.? The ventricles are symmetric in size and shape.? ? Brain:? No intracranial bleeds or masses.? There is cerebral volume loss for age, with resultant ventricular and sulcal prominence.? There are periventricular and deep white matter chronic small vessel ischemic changes.? There is intracranial internal carotid artery atherosclerosis.? ? Skull and face:? Calvarium and visualized facial bones appear intact, without suspicious lesions.? Swelling noted in the right periorbital facial soft tissues.? ? Sinuses:? Visualized sinuses and mastoids are clear.? ? ? IMPRESSION:? No acute intracranial disease process. ? Findings telephoned to Dr. Morris on February 07, 2022 at 2:42 p.m. ? ? This study fulfills neurological imaging criteria for inclusion or exclusion of acute stroke therapies based on available published neurological guidelines.? ? ? Dictated by: Ethel Sarabia MD, PhD on 02/07/2022 at 14:41 ? ? Approved by: Ethel Sarabia MD, PhD on 02/07/2022 at 14:45? ECG Data Attestation: I personally reviewed and interpreted this ECG as follows: Interpretation: Sinus tachycardia Ventricular rate 114 Normal axis Normal QRS Normal QTC No ST T wave changes MDM Narrative Medical decision making narrative: Patient is greater than 4-1/2 hours at the onset of symptoms. Patient is an 8 score of 3. Does have drooping of the right side of her face. Does have multiple other reasons for the symptoms to include hemiplegia my drains and also trigeminal neuralgia. She was treated for this and she states that her symptoms do seem to be improved. I have low suspicion for CVA/TIA. Will have patient continue to take her headache medications. She was given return precautions and follow-up instructions. She expressed understanding agreement. Discharge Plan Departure Patient Disposition: Home Clinical Impression: Headache Instructions: DI for Headache Activity Restrictions/Additional Instructions: Recommend that you continue to take all of your medications as directed. Contact your primary doctor for a follow-up. Return to the emergency department for any new or worsening symptoms. Prescriptions: No Action lithium carbonate 150 mg capsule 300 mg PO BEDTIME Qty: 30 0RF Rx Instructions: Take with food hydroxyzine pamoate 25 mg capsule 25 mg PO TID PRN (Reason: anxiety) Qty: 90 0RF prazosin 1 mg capsule 1 mg PO BEDTIME MDD 2 Qty: 45 0RF Rx Instructions: start with 1mg before bed, okay to increase to 2 mg. monitor blood pressures daily. call for refill prednisone 10 mg tablet 10 mg PO QID Qty: 30 0RF Hold Instructions: Home Medication placed on hold at Doctor's office Rx Instructions: Four day for 3 days; 3 day for 3 days; 2 a day for 3 days; 1 a day for 4 days; DC oxycodone-acetaminophen 5-325 mg tablet 1 tab PO Q8H PRN (Reason: pain) Qty: 10 0RF duloxetine 20 mg capsule,delayed release(DR/EC) See Rx Instructions PO BID Qty: 60 0RF Rx Instructions: Take 1 capsule by mouth daily for 7 days then 1 capsule twice daily tizanidine 4 mg capsule 4 mg PO BEDTIME PRN (Reason: muscle spasticity) Qty: 30 2RF lidocaine 5 % adhesive patch,medicated 1 patch TOP DAILY MDD 12 hours in a 24 hour period Qty: 15 3RF Rx Instructions: leave on most painful area for 12 hrs gabapentin 300 mg capsule 300 mg PO TID Qty: 90 3RF metformin 500 mg tablet 500 mg PO QAM 0RF glimepiride 2 mg tablet 2 mg PO BID 0RF nifedipine 60 mg tablet extended release 24hr 60 mg PO DAILY 0RF metformin 1,000 mg tablet 1,000 mg PO QPM 0RF topiramate 50 mg tablet 50 mg PO BID 0RF celecoxib [Celebrex] 200 mg capsule 200 mg PO DAILY Qty: 30 2RF furosemide [Lasix] 20 mg tablet 20 mg PO QAM Qty: 30 2RF Referrals: Angella Marie DO [Primary Care Provider] -
[2022-02-07 14:47] LABS: INR 0.9 (0.9-1.3)
--- NOTE | 2022-02-07 14:47 | PC.NURSE ---
blood law drawl: [address]: 1430 in room/EKG/MD at bedside: 1435 Ruthann Escamilla at bedside placing midline: 1442
[2022-02-07 14:50] LABS: PTT Partial Thromboplastin Tim 32 SECONDS (26.4-36.2)
[2022-02-07 14:58] LABS: Alanine Aminotransferase 20 IU/L (<35); Albumin 4.4 g/dL (3.5-5.0); Albumin Globulin Ratio 1.3 (1.0-2.8); Alkaline Phosphatase 112 U/L (38-126); Aspartate Aminotransferase 28 IU/L (14-36); BUN Creatinine Ratio 26.4 (6-22); Bilirubin Total 0.3 mg/dL (0.2-1.3); Blood Urea Nitrogen 19 mg/dL (7-17); Calcium 9.8 mg/dL (8.4-10.2); Carbon Dioxide 23 mmol/L (22-32); Chloride 102 mmol/L (98-107); Creatine Kinase 80 U/L (30-135); Estimated Glomerular Filt Rate > 60.0 mL/min (>60); Globulin 3.3 g/dL (1.7-4.1); Glucose 413 mg/dL (70-100); HEMOLYSIS < 15 (0-50); Lipase 59 U/L (23-300); Potassium 3.9 mmol/L (3.4-5.1); Sodium 136 mmol/L (137-145); Total Protein 7.7 g/dL (6.3-8.2)
[2022-02-07 15:10] LABS: Troponin I < 0.012 ng/mL (0.01-0.034)
[2022-02-07] MEDS: diphenhydrAMINE 50 MG/ML VIAL 25 MG IV (16:02)
[2022-02-07] MEDS: SODIUM CHLORIDE 0.9% 1,000 ML 1000 ML IV (16:03)
[2022-02-07] MEDS: METOCLOPRAMIDE 10 MG/2 ML INJ IV (16:03)
== END 2022-02-07 18:07 | disposition home or self-care (01) ==
PROVIDERS: Emergency Provider Emergency Medicine; PCP Family Medicine
DX: R51.9 Headache, unspecified (principal)
CPT/HCPCS: 36415; 70450; 80053; 82550; 83690; 84484; 85025; 85610; 85730; 93005; 96361; 96374; 96375; 99284; J1200; J2765

== ENCOUNTER → 2022-08-30 12:51 | Outpatient (CLI) | payer BC, SELFPAY ==
[2022-08-30 14:12] LABS: Alanine Aminotransferase 16 IU/L (<35); Albumin 4.7 g/dL (3.5-5.0); Albumin Globulin Ratio 1.2 (1.0-2.8); Alkaline Phosphatase 83 U/L (38-126); Aspartate Aminotransferase 18 IU/L (14-36); BUN Creatinine Ratio 15.6 (6-22); Bilirubin Total 0.4 mg/dL (0.2-1.3); Blood Urea Nitrogen 14 mg/dL (7-17); Calcium 10.1 mg/dL (8.4-10.2); Carbon Dioxide 22 mmol/L (22-32); Chloride 103 mmol/L (98-107); Cholesterol 142 mg/dL (140-199); Estimated Glomerular Filt Rate > 60 mL/min (>60); Globulin 3.8 g/dL (1.7-4.1); Glucose 173 mg/dL (80-110); HDL Cholesterol 43 mg/dL (40-60); HEMOLYSIS < 15 (0-50); LDL Cholesterol Calculated 56 mg/dL (<100); Sodium 141 mmol/L (137-145); Total Protein 8.5 g/dL (6.3-8.2); Triglycerides 216 mg/dL (35-150)
[2022-08-30 14:14] LABS: Hemoglobin A1C% w Est Avg Glu 8.4 % (4.0-6.0)
[2022-08-30 14:41] LABS: TSH w/ Reflex to FT4 0.97 uIU/mL (0.47-4.68)
[2022-08-30 15:30] LABS: Creatinine Urine Random 309.8 mg/dL
[2022-08-30 15:35] LABS: Microalbumi Creatinin Ratio Ur 59.3 ug/mg CR (<30); Microalbumin Urine Random 18.4 mg/dL (0-1.6)
== END ==
PROVIDERS: PCP Family Medicine; Referring Provider Anesthesiology; Visit Provider Anesthesiology
DX: E11.65 Type 2 diabetes mellitus with hyperglycemia (principal); E06.3 Autoimmune thyroiditis; Z83.2 Family history of diseases of the blood and blood-forming organs and certain disorders involving the immune mechanism; Z84.89 Family history of other specified conditions
CPT/HCPCS: 36415; 80053; 80061; 82043; 82570; 83036; 84443

== ENCOUNTER → 2022-09-02 15:10 | Outpatient (ROUT) | payer BC, SELFPAY ==
[2022-09-12 16:08] LABS: Normetanephrine Total 256 ug/24 hr (131-612); Urine, Metanephrine 47 ug/L (Undefined); Urine, Normetanephrine 146 ug/L (Undefined)
== END ==
PROVIDERS: PCP Family Medicine
DX: Z13.89 Encounter for screening for other disorder (principal); Z83.49 Family history of other endocrine, nutritional and metabolic diseases
CPT/HCPCS: 83835